=== PATIENT | male | born 2000 | race Hispanic/Latino ===

== ENCOUNTER 2023-01-28 07:53 | Emergency (ER) | payer BC ==
[~2023-01-28] VITALS: Ht 160 cm; Wt 72.6 kg
[2023-01-28] MEDS ORDERED: ONDANSETRON 4MG INJ IVP ONE (08:30)
[2023-01-28] MEDS ORDERED: LORAZEPAM 2 MG/ML 1 ML VIAL IVP ONE (08:30)
[2023-01-28] MEDS ORDERED: LEVETIRACETAM 500 MG/5 ML SD VIAL IV SCH (08:30)
[2023-01-28 08:57] LABS: BASOPHILS % (AUTO) 1.1 % (0.0-5.0); EOSINOPHILS % (AUTO) 11.8 % (0.0-8.0); HEMATOCRIT 43.9 % (42-54); LYMPHOCYTES % (AUTO) 35.2 % (21.0-51.0); MEAN CORPUSCULAR HEMOGLOBIN 28.5 pg (27.0-33.0); MEAN CORPUSCULAR HGB CONC 32.8 g/dL (32.0-36.0); MEAN CORPUSCULAR VOLUME 86.9 fL (79-99); MONOCYTES % (AUTO) 5.8 % (3.0-13.0); NEUTROPHILS % (AUTO) 44.3 % (40.0-77.0); PLATELET COUNT (AUTO) 284 K/uL (130-400); RED BLOOD CELL COUNT(AUTO) 5.05 MIL/uL (4.50-6.20); RED CELL DISTRIBUTION WIDTH 12.3 % (11.0-15.5)
[2023-01-28 09:33] LABS: POTASSIUM 3.7 mmol/L (3.5-5.1); TOTAL PROTEIN, SERUM 7.1 g/dL (6.0-8.3)
[2023-01-28] MEDS ORDERED: LEVE-43 PO (10:21)
[2023-01-28 10:24] VITALS: BP 105/62
== END 2023-01-28 10:21 | disposition home or self-care (01) ==
LOC: EDH 07:53
DX: G40.909 Epilepsy, unspecified, not intractable, without status epilepticus (principal); E86.0 Dehydration; F19.10 Other psychoactive substance abuse, uncomplicated; Z91.148 Patient's other noncompliance with medication regimen for other reason
CPT/HCPCS: 99284; 96365; 96375; 82550; 80053; 85025; 83605; 36415; J1953; J2405; J2060

== ENCOUNTER 2024-07-09 12:48 | Inpatient (IN) | payer BC ==
[~2024-07-09] VITALS: Ht 167.6 cm; Wt 89.4 kg
[~2024-07-09 12:48] MED LIST: LEVE-43 PO
--- NOTE | 2024-07-09 12:55 | NUR ---
PT JUST NOW PLACED IN MY ED BED 10
--- NOTE | 2024-07-09 12:56 | NUR ---
PER EMS, PT IS NON COMPLIANT W/MEDICATIONS. CERVICAL COLLAR PLACED
--- NOTE | 2024-07-09 13:00 | NUR ---
SEIZURE PRECAUTIONS: SEIZURE PADS PLACED ON SIDE RAILS
[2024-07-09] MEDS: LACTATED RINGERS 1000ML 1,000 ML IV ONE (13:39)
--- NOTE | 2024-07-09 13:40 | NUR ---
PT TO CT SCAN VIA STRETCHER
[2024-07-09 13:42] LABS: AMPHET/METH SCREEN,URINE NEGATIVE (NEGATIVE); BARBITURATE SCREEN, URINE NEGATIVE (NEGATIVE); BENZODIAZEPINES SCREEN,URINE NEGATIVE (NEGATIVE); CANNABINOID SCREEN,URINE POSITIVE (NEGATIVE); COCAINE SCREEN,URINE NEGATIVE (NEGATIVE); OPIATE SCREEN,URINE NEGATIVE (NEGATIVE); PHENCYCLIDINE SCREEN,URINE NEGATIVE (NEGATIVE)
[2024-07-09 13:52] LABS: BASOPHILS # (AUTO) 0.12 K/uL (0.00-0.20); BASOPHILS % (AUTO) 0.5 % (0.0-5.0); HEMATOCRIT 48.6 % (42-54); IMMATURE GRANULOCYTE ABSOLUTE 0.89 K/uL (0-1); LYMPHOCYTES % (AUTO) 3.9 % (21.0-51.0); MEAN CORPUSCULAR HEMOGLOBIN 28.9 pg (27.0-33.0); MEAN CORPUSCULAR HGB CONC 34.4 g/dL (32.0-36.0); MEAN CORPUSCULAR VOLUME 84.1 fL (79-99); MONOCYTES # (AUTO) 2.1 K/uL (0.1-1.0); MONOCYTES % (AUTO) 7.9 % (3.0-13.0); NEUTROPHILS # (AUTO) 22.4 K/uL (1.8-7.7); NEUTROPHILS % (AUTO) 84.3 % (40.0-77.0); PLATELET COUNT (AUTO) 322 K/uL (130-400); RED BLOOD CELL COUNT(AUTO) 5.78 MIL/uL (4.50-6.20); RED CELL DISTRIBUTION WIDTH 11.6 % (11.0-15.5); WHITE BLOOD COUNT (AUTO) 26.5 K/uL (4.8-10.8)
[2024-07-09 14:12] LABS: CARBON DIOXIDE 22 mmol/L (21-32); CHLORIDE 107 mmol/L (101-111); CREATININE 1.6 mg/dL (0.5-1.3); GLOMERULAR FILTR. RATE CALC 61 mL/min (>90); GLUCOSE,RANDOM 118 mg/dL (70-105); POTASSIUM 3.5 mmol/L (3.5-5.1); SODIUM SERUM 142 mmol/L (136-145); UREA NITROGEN, BLOOD 19 mg/dL (7-18)
--- NOTE | 2024-07-09 14:17 | HMCIMG ---
CERV SPINE 2-3VWS: 07/09/2024 1:02 PM [employer] CLINICAL HISTORY: fall COMPARISON: None TECHNIQUE: 4 images of the cervical spine were obtained. FINDINGS: The lung apices are clear. There is no fracture or destructive lesion. The vertebral bodies and posterior elements are unremarkable. The alignment, discs, and discovertebral relationships are normal. There is no evidence of instability on these views. IMPRESSION: Normal cervical spine.
--- NOTE | 2024-07-09 14:22 | HMCIMG ---
CT HEAD/BRAIN W/O CONTRAST CLINICAL HISTORY: seizure/ fall COMPARISON: None TECHNIQUE: Multiple sequential axial images of the head were obtained from the base of the skull through vertex. CT was performed with one or more of the following dose reduction techniques: automated exposure control, adjustment of the mA and/or kV according to patient size, or use of iterative reconstruction technique FINDINGS: The brain parenchyma and CSF spaces are unremarkable. The orbital contents, paranasal sinuses and mastoid air cells are within normal limits. The calvarium is intact. IMPRESSION: Normal study
--- NOTE | 2024-07-09 14:26 | ERN ---
General Chief Complaint: Mechanical Fall Stated Complaint: SEIZURES Time Seen by MD: 12:49 Source: patient History of Present Illness Initial Comments 23-year-old male coming in to be evaluated for fall. Patient states that he fell down and he believes it was associated to his seizures. Per patient he has not been taking his seizure medications. Allergies: Coded Allergies: No Known Drug Allergies (Unverified Allergy, Unknown, UNKNOWN, 06/14/20) Home Meds Active Scripts Levetiracetam (Keppra) 500 Mg Tablet, 500 MG PO BID for 30 Days, #60 TAB 2 Refills Prov:RUBY LINDQUIST Sr., MD 01/28/23 Past Medical History Past Medical History: Seizure Past Surgical History: None Social History Social History: Drugs, ETOH, Lives with family ROS Dictation CONSTITUTIONAL: No chills, no fever, weakness, no diaphoresis, no malaise. HEAD/FACE: No signs of trauma. EENT: No eye pain, no blurred vision, no tearing, no double vision, no ear pain, no ear discharge, no nose pain, no nasal congestion, no throat pain, no throat swelling, no mouth pain. RESPIRATORY: No cough, no orthopnea, no SOB, no stridor, no wheezing. CARDIOVASCULAR: No chest pain, no edema, no palpitations, no syncope. GASTROINTESTINAL/ABDOMINAL: No abdominal pain, no constipation, no diarrhea, no nausea, no vomiting. GENITOURINARY: No abnormal discharge, no dysuria, no frequent urination, no hematuria. No complaints of pain in the genitals. MUSCULOSKELETAL: No back pain, no gout, no joint pain, no joint swelling, no muscle pain, no muscle stiffness, no neck pain. INTEGUMENTARY: No change in color, no change in hair/nails, no dryness, no lesion, no lumps, no rash. NEUROLOGICAL/PSYCH: No anxiety, not depressed, no emotional problem, no headache, no numbness, no pre-existing deficit, no history of seizures, no tremors, no weakness. HEMATOLOGIC/LYMPHATIC: Not anemic, no history of blood clots, no apparent bleeding, no bruising, glands not swollen. All Systems Negative, Except as Noted. Physical Exam Physical Exam Dictation VITAL SIGNS: Reviewed. GENERAL APPEARANCE: Alert, oriented x3, no acute distress, obese. HEAD AND FACE: Non-traumatic. EYES: PERRL, pink conjunctivas, eyelid no trauma, anterior chamber clear. EARS: Pinnas intact and no signs of trauma or erythema. Ear canals clear and no discharge. TMs no erythema. NOSE: No discharge, no bleeding. OROPHARYNX: Mouth normal, teeth no caries, tongue pink. Pharynx clear, no erythema. Tonsils no exudates, no abscesses noted. Mucous membrane moist. NECK: Supple, non-tender, no thyromegaly, no masses, no JVD, no bruits. BREAST: Deferred. CHEST: No tenderness, no crepitus, no paradoxical movement, no retractions. LUNGS: Clear, well-ventilated, symmetric, no rales, no wheezing, no rhonchi, no stridor, good breath sounds bilaterally. HEART: Regular rate, regular rhythm, no murmur, no gallops. VASCULAR: No peripheral edema. ABDOMEN: Soft, positive bowel sounds, nondistended, no guarding, nontender, no rebound, no masses no hepatomegaly, no splenomegaly, no Song's sign, no hernias. RECTAL: Deferred. GENITAL: Deferred. NEUROLOGICAL: Normal speech, gross motor function intact, gross sensory function intact. MUSCULOSKELETAL: Neck nontender, full range of motion, back nontender, full range of motion. EXTREMITIES: Nontender, full range of motion. SKIN: Color pink, dry, no turgor, no rash, no lacerations, no abrasions, no contusions. LYMPHATICS: Deferred. Results Laboratory and Microbiology Lab and Micro Result Laboratory Tests Test 07/09/24 13:15 07/09/24 13:40 07/09/24 14:50 Urine Opiates Screen NEGATIVE (NEGATIVE) Urine Barbiturates Screen NEGATIVE (NEGATIVE) Urine Phencyclidine Screen NEGATIVE (NEGATIVE) Urine Amphetamines Screen NEGATIVE (NEGATIVE) Urine Benzodiazepines Screen NEGATIVE (NEGATIVE) Urine Cocaine Screen NEGATIVE (NEGATIVE) Urine Marijuana (THC) Screen POSITIVE (NEGATIVE) H White Blood Count 26.5 K/uL (4.8-10.8) H Red Blood Count 5.78 MIL/uL (4.50-6.20) Hemoglobin 16.7 g/dL (14.0-18.0) Hematocrit 48.6 % (42-54) Mean Corpuscular Volume 84.1 fL (79-99) Mean Corpuscular Hemoglobin 28.9 pg (27.0-33.0) Mean Corpuscular Hemoglobin Concent 34.4 g/dL (32.0-36.0) Red Cell Distribution Width 11.6 % (11.0-15.5) Platelet Count 322 K/uL (130-400) Mean Platelet Volume 9.8 fL (7.5-10.5) Immature Granulocyte % (Auto) 3.4 % (0-1) H Neutrophils (%) (Auto) 84.3 % (40.0-77.0) H Lymphocytes (%) (Auto) 3.9 % (21.0-51.0) L Monocytes (%) (Auto) 7.9 % (3.0-13.0) Eosinophils (%) (Auto) 0.0 % (0.0-8.0) Basophils (%) (Auto) 0.5 % (0.0-5.0) Neutrophils # (Auto) 22.4 K/uL (1.8-7.7) H Lymphocytes # (Auto) 1.0 K/uL (1.0-4.8) Monocytes # (Auto) 2.1 K/uL (0.1-1.0) H Eosinophils # (Auto) 0.00 K/uL (0.00-0.70) Basophils # (Auto) 0.12 K/uL (0.00-0.20) Absolute Immature Granulocyte (auto 0.89 K/uL (0-1) Segmented Neutrophils % 80 % (40-70) H Band Neutrophils % 13 % (0-2) H Lymphocytes % (Manual) 3 % (22-44) L Monocytes % (Manual) 4 % (2-9) Nucleated Red Blood Cells 0.0 % (0.0-0.19) Differential Comment MANUAL DIFFERENTIAL White Cell Morphology Comment CONSISTENT W/DIFF Platelet Morphology Comment ADEQUATE Red Blood Cell Morphology ANISO 1+ Sodium Level 142 mmol/L (136-145) Potassium Level 3.5 mmol/L (3.5-5.1) Chloride Level 107 mmol/L (101-111) Carbon Dioxide Level 22 mmol/L (21-32) Blood Urea Nitrogen 19 mg/dL (7-18) H Creatinine 1.6 mg/dL (0.5-1.3) H Glomerular Filtration Rate Calc 61 mL/min (>90) Random Glucose 118 mg/dL (70-105) H Total Calcium 8.6 mg/dL (8.5-10.1) Phenytoin (Dilantin) Level < 0.5 mcg/mL (10.0-20.0) L Valproic Acid (Depakene) Level 4 mcg/mL (50-100) L Lactic Acid Level 4.7 mmol/L (0.8-2.5) H Total Creatine Kinase 582 U/L (21-232) #*H Troponin I High Sensitivity 47 ng/L (4-75) Labs Reviewed?: Yes MDM MDM: Differential diagnosis: History of seizure, syncope, dehydration, lactic acidosis, cannabis abuse, Rationale: Tests considered and ordered secondary to shared decision making include: labs, ECG and radiology Previous outside records reviewed: Old ER visits. Risk of complication and/or morbidity or mortality of patient management: None Medications-Per medication reconciliation Need for hospitalization: Patient does meet criteria for hospitalization. Need for emergency major/minor surgery: No There are no social concerns with this patient. Prescription drug management Prescriptions will include symptomatic care Patient's prior external medical records from other ER visits were reviewed by me as indicated. Prior testing and results from previous visits were reviewed. Prior tests were taken into account with medical decision making and resource utilization, independent historian/historians were used to obtain complete medical history. I independently interpreted the test that were performed, results were reviewed by me and considered findings on radiology if ordered. Medical management and examination interpretation discussions were had by me with other qualified healthcare professionals as indicated for the patient's care. Patient is a 23-year-old male coming in to be evaluated they had a syncopal episode. Patient states he does have a history of seizures has not taking his Keppra as indicated due to financial reasons. Laboratory workup positive for elevated lactic acid dehydration was also found white blood cell count elevated as well. Laboratory workup also positive for cannabis. Patient will be admitted under the care of hospitalist group for ongoing management of syncopal episode with lactic acidosis and elevated white blood cell count. Throughout ER visit patient has been stable. ED Course Orders Procedure Category Date Status Time Cbc With Differential LAB 07/09/24 Complete 13:02 Phenytoin (Yann) In LAB 07/09/24 Complete House 13:02 Valproic Acid LAB 07/09/24 Complete 13:02 Ct Head/Brain W/O CT 07/09/24 Resulted Contrast 13:02 Lactated Ringers PHA 07/09/24 In Process 1000ml (Lactated 13:30 Basic Metabolic Panel LAB 07/09/24 Complete 13:02 Cerv Spine 2-3vws RAD 07/09/24 Resulted 13:02 Drug Screen Urine LAB 07/09/24 Complete 13:02 Levetiracetam 500 PHA 07/09/24 In Process Mg/5 Ml Sd V (Keppra 5 14:30 Blood Cult STARR 07/09/24 In Process 14:36 Urinalysis Profile LAB 07/09/24 Logged 14:36 Culture Urine STARR 07/09/24 Logged 14:36 0.9%Nacl 1000ml (Ns PHA 07/09/24 In Process 1000ml) 15:00 Creatine Kinase, Total LAB 07/09/24 Complete 14:36 Troponin I High LAB 07/09/24 Complete Sensitivity 14:36 Lactic Acid LAB 07/09/24 Complete 14:36 Ceftriaxone 1g Vial PHA 07/09/24 Complete (Rocephine 1g Inj) 15:00 Manual Differential LAB 07/09/24 Complete 13:40 Current Medications Medications (Trade) Dose Ordered Sig/Barber Route PRN Reason Start Time Stop Time Status Last Admin Dose Admin Ceftriaxone Sodium (ROCEphine 1G INJ) 1 gm ONCE ONCE IVPB 07/09/24 15:00 07/09/24 15:01 DC 07/09/24 15:29 Lactated Ringer's 1,000 ml @ 125 mls/hr ONCE ONCE IV 07/09/24 13:30 07/09/24 21:29 07/09/24 13:39 Levetiracetam (kepPRA 500 MG/5 ML SD VIAL) 1,000 mg ONCE IV 07/09/24 14:30 08/08/24 14:29 07/09/24 14:52 Sodium Chloride 2,178 ml @ 726 mls/hr ONCE ONCE IV 07/09/24 15:00 07/09/24 17:59 07/09/24 14:52 Vital Signs Date Time Temp Pulse Resp B/P (MAP) Pulse Ox O2 Delivery O2 Flow Rate FiO2 07/09/24 12:50 98.8 112 20 132/89 98 Room Air 0 Critical Care Note Comments Critical Care Procedure Note Authorized and Performed by: Total critical care time: Approximately 36 minutes Due to a high probability of clinically significant, life threatening deterioration, the patient required my highest level of preparedness to intervene emergently and I personally spent this critical care time directly and personally managing the patient. This critical care time included obtaining a history; examining the patient; pulse oximetry; ordering and review of studies; arranging urgent treatment with development of a management plan; evaluation of patient's response to treatment; frequent reassessment; and, discussions with other providers. This critical care time was performed to assess and manage the high probability of imminent, life-threatening deterioration that could result in multi-organ failure. It was exclusive of separately billable procedures and treating other patients and teaching time. Please see MDM section and the rest of the note for further information on patient assessment and treatment. DX & DISP Disposition: Inpatient Decision to Admit Time: 16:10 Departure Impression: Primary Impression: Recreational drug use Additional Impressions: Noncompliance with medications, Lactic acidosis, Dehydration Condition: Stable Referrals: SELF,REFERRAL (PCP) [facility] MD Jul 09, 2024 14:26
[2024-07-09 14:27] LABS: PHENYTOIN (DILANTIN) < 0.5 mcg/mL (10.0-20.0)
[2024-07-09 14:34] LABS: VALPROIC ACID 4 mcg/mL (50-100)
[2024-07-09 14:48] LABS: BAND NEUTROPHILS % (MANUAL) 13 % (0-2); LYMPHOCYTES % (MANUAL) 3 % (22-44); MAN.DIFF COMMENT-IMPRESSION MANUAL DIFFERENTIAL; MONOCYTES % (MANUAL) 4 % (2-9); SEGMENTED NEUTROPHILS % 80 % (40-70); TOTAL CELLS COUNTED 100
[2024-07-09 14:49] LABS: PLATELET MORPHOLOGY COMMENT ADEQUATE; WBC MORPHOLOGY CONSISTENT W/DIFF
[2024-07-09] MEDS: 0.9%NACL 1000ML 2,178 ML IV ONE (14:52)
[2024-07-09] MEDS: leveTIRACEtam 500 MG/5 ML SD VIAL IV SCH (14:52)
[2024-07-09] MEDS: cefTRIAXone 1G VIAL IVPB ONE (15:29)
[2024-07-09] MEDS ORDERED: PoTASSium chl 10% ELIXIR 20MEQ 20 MEQ/15 ML UDCUP PO PRN (16:30)
[2024-07-09] MEDS: CEFTRIAXONE 2GM VIAL IVPB SCH (16:30)
[2024-07-09] MEDS ORDERED: acetaMINOPHEN 325 MG TAB PO PRN (16:30)
[2024-07-09] MEDS ORDERED: PoTASSium chloRIDE 20MEQ/100ML 100 ML IV PRN (16:30)
[2024-07-09] MEDS: ondanSETRON 4MG INJ IVP PRN (16:31)
[2024-07-09 16:43] LABS: APPEARANCE,URINE CLEAR (CLEAR); BILIRUBIN,URINE NEGATIVE (NEGATIVE); GLUCOSE, URINE (UA) >=1000 mg/dL (NEGATIVE); KETONES,URINE 10 mg/dL (NEGATIVE); LEUKOCYTE ESTERASE ,URINE NEGATIVE Leu/uL (NEGATIVE); NITRATE,URINE NEGATIVE (NEGATIVE); OCCULT BLOOD,URINE MODERATE (NEGATIVE); UROBILINOGEN,URINE 0.2 mg/dL (0.2-1.0)
[2024-07-09 16:44] LABS: ADD UA MICROSCOPIC YES
[2024-07-09 16:45] LABS: COLOR,URINE LIGHT-YELLOW (YELLOW); PROTEIN,URINE 30 mg/dL (NEGATIVE)
[2024-07-09 16:46] LABS: BACTERIA,URINE RARE /HPF (None Seen); SQUAMOUS EPITHELIAL CELL,UR RARE /HPF (0-2); URIC ACID CRYSTALS,URINE RARE /LPF (None Seen); WBC,URINE 0-1 /HPF (0-1)
[2024-07-09] MEDS ORDERED: PHARMACY COMMUNICATION MISC PRN (17:00)
--- NOTE | 2024-07-09 17:06 | HP ---
[facility] HISTORY AND PHYSICAL Date of Service: Jul 09, 2024 Time of Service: 16:21 HISTORY OF PRESENT ILLNESS: [ ] PCP: none admission date: 07/09/24 This is a 23-year-old female that presents in ED with chief complaints of having a mechanical fall she assumed maybe she had a seizure and came to ED for further evaluation and treatment. Apparently patient is on ant seizure medication ho wever noncompliance has not be taking her medication over a year. His last siezure was a year ago. Patient's smokes marijuana last marijuana use was two days ago patient had alcohol consumption last night had seven beers. He reports he drinks on a daily basis. Patient received loading dose of Keppra and IV fluids. Patient was seen in ED 10 patient was sleeping however was easily aroused answer all my questions appropriately. Denied chest pain or shortness for breath. Discussed the plan of care answer all questions. REVIEW OF SYSTEMS CONSTITUTIONAL: Denies fevers, chills, or night sweats. No unintentional weight loss reported. NEUROLOGICAL: Denies headache, amaurosis fugax, motor weakness, sensory deficit, vertigo/spinning sensation, gait abnormalities, or tremors. ENT: No hearing loss, otalgia, otorrhea, rhinitis, rhinorrhea, hoarseness, or sore throat. CARDIOVASCULAR: Denies any exertional angina, dyspnea on exertion, orthopnea, paroxysmal nocturnal dyspnea, palpitations, life-threatening arrhythmias, reggie ication. PULMONARY: Denies any shortness of breath, cough, phlegm/sputum, hemoptysis, pleuritic chest pain. SLEEP: Denies morning headaches, daytime somnolence or napping. Denies difficulty falling asleep, staying asleep, waking from sleep. Denies knowledge of snoring. GASTROINTESTINAL: Denies any type of dysphagia to either liquids or solids. Denies nausea, vomiting, pyrosis, early satiety, abdominal pain, diarrhea, constipation, or changes in stool consistency or caliber. Denies coffee-ground emesis, hematemesis, hematochezia, or melanotic stools. GENITOURINARY: Denies frequency, urgency, nocturia, hematuria or incontinence (Storage/Irritative symptoms.) Low urinary stream, straining to void, urinary intermittency or hesitancy, splitting of the voiding stream, terminal dribbling. ENDOCRINOLOGIC: Denies polyuria, polydipsia, polyphagia or heat/cold intolerances. HEMATOLOGIC: Denies thrombophilia/previous clots, or coagulopathy/bleeding disorders. ONCOLOGIC: Denies personal history of malignancy. DERMATOLOGIC: Denies rashes or pruritus. PSYCHIATRIC: Denies any suicidal or homicidal ideation. Denies hallucinations. PAST MEDICAL HISTORY: [ ] PAST SURGICAL HISTORY: [ ] PAST SOCIAL HISTORY: [ ] FAMILY HISTORY: [ ] Coded Allergies: No Known Drug Allergies (Unverified Allergy, Unknown, UNKNOWN, 06/14/20) PHYSICAL EXAM GENERAL APPEARANCE: The patient is awake, alert, and oriented, in no acute cardiopulmonary distress. NEUROLOGICAL: Cranial nerves II-XII grossly intact. Motor is 5/5 in bilateral upper and lower extremities proximal to distal. No sensory deficits. HEENT: Face is symmetric. Pupils are equal and reactive. Extraocular movements are intact. NECK: Supple. No JVD. No thyromegaly. No submental, submandibular, pre- /postauricular, occipital or supraclavicular lymphadenopathy. CHEST: Normal chest expansion. No Telemetry. LUNGS: Absence of any rales, rhonchi or any wheezing. CARDIOVASCULAR: Regular. S1 and S2 normal. No appreciable rubs, murmurs or gallops. ABDOMEN: Soft, nontender, and nondistended. There is no rebound, voluntary guarding, or rigidity. : Deferred. No Roy. EXTREMITIES: Non-edematous and not cyanotic. No clubbing. Good capillary refill. SKIN: No skin breakdown. Vital Sign (Last 24 Hours) 07/09/24 12:50 Temp 98.8 Pulse 112 Resp 20 B/P (MAP) 132/89 Pulse Ox 98 O2 Delivery Room Air O2 Flow Rate 0 LABS: Laboratory: Test 07/09/24 14:50 07/09/24 13:40 07/09/24 13:15 Range/Units Lactic Acid Level 4.7 H 0.8-2.5 mmol/L Total Creatine Kinase 582 #*H 21-232 U/L Troponin I High Sensitivity 47 4-75 ng/L White Blood Count 26.5 H 4.8-10.8 K/uL Red Blood Count 5.78 4.50-6.20 MIL/uL Hemoglobin 16.7 14.0-18.0 g/dL Hematocrit 48.6 42-54 % Mean Corpuscular Volume 84.1 79-99 fL Mean Corpuscular Hemoglobin 28.9 27.0-33.0 pg Mean Corpuscular Hemoglobin Concent 34.4 32.0-36.0 g/dL Red Cell Distribution Width 11.6 11.0-15.5 % Platelet Count 322 130-400 K/uL Mean Platelet Volume 9.8 7.5-10.5 fL Immature Granulocyte % (Auto) 3.4 H 0-1 % Neutrophils (%) (Auto) 84.3 H 40.0-77.0 % Lymphocytes (%) (Auto) 3.9 L 21.0-51.0 % Monocytes (%) (Auto) 7.9 3.0-13.0 % Eosinophils (%) (Auto) 0.0 0.0-8.0 % Basophils (%) (Auto) 0.5 0.0-5.0 % Neutrophils # (Auto) 22.4 H 1.8-7.7 K/uL Lymphocytes # (Auto) 1.0 1.0-4.8 K/uL Monocytes # (Auto) 2.1 H 0.1-1.0 K/uL Eosinophils # (Auto) 0.00 0.00-0.70 K/uL Basophils # (Auto) 0.12 0.00-0.20 K/uL Absolute Immature Granulocyte (auto 0.89 0-1 K/uL Segmented Neutrophils % 80 H 40-70 % Band Neutrophils % 13 H 0-2 % Lymphocytes % (Manual) 3 L 22-44 % Monocytes % (Manual) 4 2-9 % Nucleated Red Blood Cells 0.0 0.0-0.19 % Differential Comment MANUAL DIFFERENTIAL White Cell Morphology Comment CONSISTENT W/DIFF Platelet Morphology Comment ADEQUATE Red Blood Cell Morphology ANISO 1+ Sodium Level 142 136-145 mmol/L Potassium Level 3.5 3.5-5.1 mmol/L Chloride Level 107 101-111 mmol/L Carbon Dioxide Level 22 21-32 mmol/L Blood Urea Nitrogen 19 H 7-18 mg/dL Creatinine 1.6 H 0.5-1.3 mg/dL Glomerular Filtration Rate Calc 61 >90 mL/min Random Glucose 118 H 70-105 mg/dL Total Calcium 8.6 8.5-10.1 mg/dL Phenytoin (Dilantin) Level < 0.5 L 10.0-20.0 mcg/mL Valproic Acid (Depakene) Level 4 L 50-100 mcg/mL Urine Opiates Screen NEGATIVE NEGATIVE Urine Barbiturates Screen NEGATIVE NEGATIVE Urine Phencyclidine Screen NEGATIVE NEGATIVE Urine Amphetamines Screen NEGATIVE NEGATIVE Urine Benzodiazepines Screen NEGATIVE NEGATIVE Urine Cocaine Screen NEGATIVE NEGATIVE Urine Marijuana (THC) Screen POSITIVE H NEGATIVE Current Medications Medications (Trade) Dose Ordered Sig/Barber Route PRN Reason Start Time Stop Time Status Last Admin Dose Admin Levetiracetam (kepPRA 500 MG/5 ML SD VIAL) 1,000 mg ONCE IV 07/09/24 14:30 08/08/24 14:29 07/09/24 14:52 1,000 MG DIAGNOSTICS / RADIOLOGY: [ ] ASSESSMENT: Sirs with dysfunction POA syncope versus seizure episode with mechanical fall POA possible Seizure episode secondary to hydration,and induced marijuana PERRY prerenal dehydration POA mild rhabdomyolysis POA positive Marijuana abuse POA ETOH dependency PLAN: admit: surgical medical floor etl consultant: [place] [facility] will follow recommendations. Received loading dose of Keppra we will continue [address] head was negative IVF's: NS at 100 ml/hr Rocephin 2 gm IV daily, urine culture labs in am: cbc,cmp, mag. avoid NSAIDs, strict I.O CIWA PROTOCOL thiamine HCL 100 mg IV now then daily MVI now then daily PRN: MEDICATIONS Tylenol 650 mg po every 4 hrs for fever Zofran 4 mg IV every 6 hrs for n/v Hydralazine 10 mg IV every 4 hrs systolic pressure > 160 Supportive measures: DVT ppx, GI ppx all questions answered time spent: > 35 min Supervising MD: Dr. Brown c/d ATTESTATION BY PHYSICIAN I have seen and examined the patient. I reviewed the documentation, medical decision making, and treatment plan as noted by the mid-level provider above. I agree with the findings and plan of care. TINA BROWN MD, ELIZABETH NP Jul 09, 2024 17:06
[2024-07-09 17:13] LABS: BASOPHILS # (AUTO) 0.06 K/uL (0.00-0.20); BASOPHILS % (AUTO) 0.3 % (0.0-5.0); HEMATOCRIT 43.2 % (42-54); IMMATURE GRANULOCYTE ABSOLUTE 0.35 K/uL (0-1); LYMPHOCYTES # (AUTO) 0.5 K/uL (1.0-4.8); LYMPHOCYTES % (AUTO) 2.3 % (21.0-51.0); MEAN CORPUSCULAR HEMOGLOBIN 29.3 pg (27.0-33.0); MEAN CORPUSCULAR HGB CONC 34.7 g/dL (32.0-36.0); MEAN CORPUSCULAR VOLUME 84.4 fL (79-99); MONOCYTES # (AUTO) 1.3 K/uL (0.1-1.0); MONOCYTES % (AUTO) 6.1 % (3.0-13.0); NEUTROPHILS # (AUTO) 19.5 K/uL (1.8-7.7); NEUTROPHILS % (AUTO) 89.7 % (40.0-77.0); PLATELET COUNT (AUTO) 277 K/uL (130-400); RED BLOOD CELL COUNT(AUTO) 5.12 MIL/uL (4.50-6.20); RED CELL DISTRIBUTION WIDTH 11.6 % (11.0-15.5); WHITE BLOOD COUNT (AUTO) 21.8 K/uL (4.8-10.8)
[2024-07-09 17:22] LABS: CREATININE 1.7 mg/dL (0.5-1.3); POTASSIUM 4.5 mmol/L (3.5-5.1)
[2024-07-09 17:27] LABS: ALBUMIN 3.3 g/dL (3.5-5.0); BILIRUBIN,TOTAL 0.7 mg/dL (0.2-1.0); MAGNESIUM 2.8 mg/dL (1.80-2.40); TOTAL PROTEIN, SERUM 5.8 g/dL (6.0-8.3)
[2024-07-09] MEDS ORDERED: COMPOUND IV MISC 1 EACH IVSOLN MISC PRN (17:30)
--- NOTE | 2024-07-09 17:30 | NUR ---
PT REFUSING VITAL SIGNS TO BE TAKEN
[2024-07-09] MEDS: THIAMINE HCL 100 MG, FOLic ACID 5 MG/ML VIAL 1 MG, M.V.I. IV [ADULT] 10 ML in 0.9%NACL ... IV SCH (18:25)
[2024-07-09] MEDS: 0.9%NACL 1000ML 1,000 ML IV SCH (18:25)
--- NOTE | 2024-07-09 19:11 | NUR ---
REPORT ENDORSED TO ALEXA TALAVERA
--- NOTE | 2024-07-09 19:16 | NUR ---
TOOK OVER PATIENT AT THIS TIME
[2024-07-09 20:15] VITALS: BP 154/80; PULSE 107; RESP 24; TEMP 98.1; O2SAT 98
[2024-07-09] MEDS: leveTIRACEtam 500 MG TABLET PO SCH (21:23)
[2024-07-09] MEDS: chlordiazePOXIDE HCL 25 MG CAP PO PRN (21:24)
--- NOTE | 2024-07-09 21:24 | NUR ---
Nurse note Patient noted sitting up abruptly on side of bed. Emesis episode x1 noted. Emesis bag provided at this time with 1 cup of ice chips. Advised patient to eat ice to settle down stomach. Patient continued dry heaving, agitated and looking around room. Patient able to confirm place, date and time. As per protocol Librium 25mg capsule given by mouth at this time. Patient noted calm and collected at this time. Will continue to monitor.
--- NOTE | 2024-07-09 21:25 | NUR ---
Tele Neuro Tele Neuro request done at this time with Soumya Middleton MD.
--- NOTE | 2024-07-09 21:40 | NUR ---
Nurse note Teleneuro consult done at this time. Per Dr. Middleton recommendations seizures may be caused by alcohol withdrawals, continue with ciwa protocol.
--- NOTE | 2024-07-09 21:49 | CONS ---
CONSULT NOTE: [facility] Note # Demographics Consult Type: General Neurology Patient Location: Emergency Room First Name: Eleno Last Name: Dale Date of : 02/08/1956 Age: 68 Gender: Male Facility: [facility] Time of Initial Page (): 07/09/2024, 20:04 Time of Return Call (): 07/09/2024, 20:04 # HPI Chief Complaint: - numbness History: 68yom who p/w 3 days of LUE numbness. On exam, he has L sided neglect. CTH with R parietal infarct. # Scores Time of exam and NIHSS (): 07/09/2024, 20:06 Level of Consciousness 1a: [0] = Alert; keenly responsive LOC Questions 1b: [0] = Answers both questions correctly LOC Commands 1c: [0] = Performs both tasks correctly Best Gaze 2: [0] = Normal Visual 3: [0] = No visual loss Facial Palsy 4: [0] = Normal symmetrical movements Motor Arm Left 5a: [0] = No drift Motor Arm Right 5b: [0] = No drift Motor Leg Left 6a: [0] = No drift Motor Leg Right 6b: [0] = No drift Limb Ataxia 7: [0] = Absent Sensory 8: [1] = [id number] sensory loss Best Language 9: [0] = No aphasia Dysarthria 10: [0] = Normal Extinction and Inattention 11: [2] = Profound radha-inattention or extinction to more than one modality NIHSS Total: 3 # Data Time Head CT personally read by me (): 07/09/2024, 20:[address]: - per radiologist read R parietal infarct # Assessment Impression: - Ischemic Stroke (Acute) # Plan Thrombolytic/Intervention: NOT IV Thrombolysis or IA Intervention candidate Thrombolytic Exclusion: > 4.5 hours Intraarterial Exclusion: - clinical exam not consistent with presence of large vessel occlusion (LVO), can reconsider if LVO found on vascular imaging Blood Pressure Management: Use labetolol 10-20mg IV PRN or nicardipine gtt to maintain BP parameters Imaging: (urgency: routine): - MRI Brain without contrast Needs vessel imaging, either CTA or MRA head and neck Diagnostic Test: - echo with bubble study Telemetry for a fib monitoring Therapy/Evaluation: - PT/OT evaluation - speech/swallow consultation - NPO until swallow evaluation Medication: - aspirin 81 mg PLUS clopidogrel (Plavix) 75 mg for 21 days, then monotherapy therafter atorvastatin 80mg daily, goal LDL <70 Other: - If patient has any neurological deterioration please call me back immediately Additional Recommendations: - Avoid dehydration and relative hypotension - Risk factor modification, including smoking cessation and alcohol moderation if appropriate - Monitor glucose and correct as needed - If cryptogenic non-lacunar stroke on MRI, obtain outpatient cardiac monitoring for a fib - Call back for neurological deterioration Disposition: admit # Logistics Attestation of consult completion: The patient is located at: [facility]. Facility staff participated in the visit. I performed this telemedicine visit from my offsite office utilizing interactive 2 way audio and visual telecommunication technology. Total time spent in telemedicine encounter: I spent 27 minutes reviewing clinical data and/or imaging, obtaining history, examining the patient, communicating with the onsite care team, and in preparation of this report. # Demographics First Name: Eleon Last Name: Dale Facility: [facility] EMETERIO KO MD Jul 09, 2024 21:49
--- NOTE | 2024-07-09 22:35 | NUR ---
Nurse note [employer] hospitalist armed custom protection officer Mirian SOL contacted at this time to advise her of patient's lactic acid 2.8. Patient was given 1 liter of lactated ringers solution and around 2100 mL of NS. Mirian SOL verbalized understanding. No new orders given.
[2024-07-09] MEDS: LORazepam 2 MG/ML 1 ML VIAL IVP PRN (22:49)
--- NOTE | 2024-07-09 22:49 | NUR ---
Nurse note Patient with multiple emesis episodes. Patient started with vomiting off the left side rail while in bed. Patient agitated in bed and restless. Ativan 2mg IV administered at this time. HOB elevated to above 30 degrees to prevent aspiration. Patient noted settling down in bed. No further nausea or vomiting noted after administration. Will continue to monitor.
[2024-07-10] VITALS (8 sets, daily range): BP systolic 125–155; BP diastolic 69–95; PULSE 92–109; RESP 18–24; TEMP 97.5–98.9; O2SAT 95–98
--- NOTE | 2024-07-10 00:10 | NUR ---
PER DR STEVENS, CANCEL EEG Addendum: 07/10/24 at 1512 by BRENDA DASILVA Amended: Links added.
--- NOTE | 2024-07-10 02:58 | NUR ---
Nurse note Bed alarm activated at this time. Patient noted sitting on the side of the bed. Patient complaint of nausea at this time. Emesis bag provided and 100cc of yellow, clear liquid noted in bag. Patient voiced he would like to take a shower. Damien CALENDER FEEDER assisted patient in shower. After patient placed in bed after shower. Patient had one further emesis episode on his body. Patient provided with new gown and sheets because he laid back in bed and covered himself with them. Ativan 2mg IVP administered at this time. Bed alarm turned on. Bed in lowest setting with wheels locked in place. Call light within reach. HOB elevated to above 30 degrees.
--- NOTE | 2024-07-10 05:18 | NUR ---
Emesis Bed alarm turned on and when nurse stepped into the room to check the patient was already walking briskly towards restroom. Patient advised to sit down due to unsteady gait. Patient voiced needed to use the restroom. Patient was advised to let nursing staff know when he needs to ambulate to the restroom for assistance. Patient assisted back to side of bed and sat down. Before urinal was provided patient had a large emesis episode on right side of bed. Nurse stayed with patient until emesis episode over. Patient laid back down and covered himself with blankets. Housekeeping was contacted to mop room and patient was provided with zofran 4mg IVP for nausea at this time.
--- NOTE | 2024-07-10 05:20 | NUR ---
[employer] hospitalist Called the answering service due to patient's multiple count of emesis episodes. Pending call back from Mirian SOL.
--- NOTE | 2024-07-10 06:59 | NUR ---
Verbal order given by Dr. Farley to discontinue EEG order.
[2024-07-10] MEDS: MULTIVITAMIN TABLET PO SCH (10:17)
[2024-07-10] MEDS: MULTIVITAMIN TABLET PO ONE (10:18)
[2024-07-10] MEDS: THIAMINE HCL 100 MG/ML 2ML VIAL IVP SCH (10:19)
[2024-07-10] MEDS: THIAMINE HCL 100 MG/ML 2ML VIAL IM ONE (10:19)
--- NOTE | 2024-07-10 14:20 | PN ---
[facility] PROGRESS NOTE Date of Service: Jul 10, 2024 Time of Service: 14:20 SUBJECTIVE: This is a 23-year-old female that presents in ED with chief complaints of having a mechanical fall she assumed maybe she had a seizure and came to ED for further evaluation and treatment. Apparently patient is on ant seizure medication however noncompliance has not be taking her medication over a year. His last siezure was a year ago. Patient's smokes marijuana last marijuana use was two days ago patient had alcohol consumption last night had seven beers. He reports he drinks on a daily basis. Patient received loading dose of Keppra and IV fluids. Patient was seen in ED 10 patient was sleeping however was easily aroused answer all my questions appropriately. Denied chest pain or shortness for breath. Discussed the plan of care answer all questions. 07/10/24 Patient was seen at bedside. He was given Ativan earlier due to agitation, was asleep when I went to examine him. I could not get any history from the patient and there was no family member at the bedside during our rounds. [facility] neuro was consulted and they requested MRI brain with and without contrast and EEG and recommended p.r.n. benzos for further treatment and to continue Keppra for now given the unclear history of seizure from alcohol withdrawal versus epilepsy. REVIEW OF SYSTEMS Could not assess as the patient was asleep PHYSICAL EXAM GENERAL APPEARANCE: The patient is asleep, difficult to arouse, in no acute cardiopulmonary distress. NEUROLOGICAL: Cranial nerves II-XII grossly intact. Motor is 5/5 in bilateral upper and lower extremities proximal to distal. No sensory deficits. HEENT: Face is symmetric. NECK: Supple. No JVD. No thyromegaly. No submental, submandibular, pre- /postauricular, occipital or supraclavicular lymphadenopathy. CHEST: Normal chest expansion. No Telemetry. LUNGS: Absence of any rales, rhonchi or any wheezing. CARDIOVASCULAR: Regular. S1 and S2 normal. No appreciable rubs, murmurs or gallops. ABDOMEN: Soft, nontender, and nondistended. There is no rebound, voluntary guarding, or rigidity. : Deferred. No Roy. EXTREMITIES: Non-edematous and not cyanotic. No clubbing. Good capillary refill. SKIN: No skin breakdown. Vital Signs (last 8hr) Date Time Temp Pulse Resp B/P (MAP) Pulse Ox O2 Delivery O2 Flow Rate FiO2 07/10/24 08:00 99.0 109 19 143/95 95 Room Air LABS: Laboratory: Test 07/09/24 21:06 07/09/24 16:54 07/09/24 14:50 07/09/24 13:40 Range/Units Lactic Acid Level 2.8 H 0.8-2.5 mmol/L White Blood Count 21.8 H 4.8-10.8 K/uL Red Blood Count 5.12 4.50-6.20 MIL/uL Hemoglobin 15.0 14.0-18.0 g/dL Hematocrit 43.2 42-54 % Mean Corpuscular Volume 84.4 79-99 fL Mean Corpuscular Hemoglobin 29.3 27.0-33.0 pg Mean Corpuscular Hemoglobin Concent 34.7 32.0-36.0 g/dL Red Cell Distribution Width 11.6 11.0-15.5 % Platelet Count 277 130-400 K/uL Mean Platelet Volume 9.8 7.5-10.5 fL Immature Granulocyte % (Auto) 1.6 H 0-1 % Neutrophils (%) (Auto) 89.7 H 40.0-77.0 % Lymphocytes (%) (Auto) 2.3 L 21.0-51.0 % Monocytes (%) (Auto) 6.1 3.0-13.0 % Eosinophils (%) (Auto) 0.0 0.0-8.0 % Basophils (%) (Auto) 0.3 0.0-5.0 % Neutrophils # (Auto) 19.5 H 1.8-7.7 K/uL Lymphocytes # (Auto) 0.5 L 1.0-4.8 K/uL Monocytes # (Auto) 1.3 H 0.1-1.0 K/uL Eosinophils # (Auto) 0.00 0.00-0.70 K/uL Basophils # (Auto) 0.06 0.00-0.20 K/uL Absolute Immature Granulocyte (auto 0.35 0-1 K/uL Nucleated Red Blood Cells 0.0 0.0-0.19 % Sodium Level 144 136-145 mmol/L Potassium Level 4.5 3.5-5.1 mmol/L Chloride Level 112 H 101-111 mmol/L Carbon Dioxide Level 23 21-32 mmol/L Blood Urea Nitrogen 20 H 7-18 mg/dL Creatinine 1.7 H 0.5-1.3 mg/dL Glomerular Filtration Rate Calc 57 >90 mL/min Random Glucose 96 70-105 mg/dL Total Calcium 7.8 L 8.5-10.1 mg/dL Magnesium Level 2.80 H 1.80-2.40 mg/dL Total Bilirubin 0.7 0.2-1.0 mg/dL Aspartate Amino Transf (AST/SGOT) 37 10-37 U/L Alanine Aminotransferase (ALT/SGPT) 55 12-78 U/L Alkaline Phosphatase 52 50-136 U/L Total Protein 5.8 L 6.0-8.3 g/dL Albumin 3.3 L 3.5-5.0 g/dL Serum Alcohol < 3 0-10 mg/dL Total Creatine Kinase 582 #*H 21-232 U/L Troponin I High Sensitivity 47 4-75 ng/L Segmented Neutrophils % 80 H 40-70 % Band Neutrophils % 13 H 0-2 % Lymphocytes % (Manual) 3 L 22-44 % Monocytes % (Manual) 4 2-9 % Differential Comment MANUAL DIFFERENTIAL White Cell Morphology Comment CONSISTENT W/DIFF Platelet Morphology Comment ADEQUATE Red Blood Cell Morphology ANISO 1+ Phenytoin (Dilantin) Level < 0.5 L 10.0-20.0 mcg/mL Valproic Acid (Depakene) Level 4 L 50-100 mcg/mL Test 07/09/24 13:15 Range/Units Urine Color LIGHT-YELLOW YELLOW Urine Appearance CLEAR CLEAR Urine pH 5.0 5.0-8.0 Urine Specific [place] 1.017 1.001-1.031 Urine Protein 30 H NEGATIVE mg/dL Urine Glucose (UA) >=1000 H NEGATIVE mg/dL Urine Ketones 10 H NEGATIVE mg/dL Urine Occult Blood MODERATE H NEGATIVE Urine Nitrate NEGATIVE NEGATIVE Urine Bilirubin NEGATIVE NEGATIVE mg/dL Urine Urobilinogen 0.2 0.2-1.0 mg/dL Urine Leukocyte Esterase NEGATIVE NEGATIVE Wojciech/uL Urine RBC 2-5 H 0-1 /HPF Urine WBC 0-1 0-1 /HPF Urine Squamous Epithelial Cells RARE 0-2 /HPF Urine Uric Acid Crystals RARE None Seen /LPF Urine Bacteria RARE None Seen /HPF Urine Opiates Screen NEGATIVE NEGATIVE Urine Barbiturates Screen NEGATIVE NEGATIVE Urine Phencyclidine Screen NEGATIVE NEGATIVE Urine Amphetamines Screen NEGATIVE NEGATIVE Urine Benzodiazepines Screen NEGATIVE NEGATIVE Urine Cocaine Screen NEGATIVE NEGATIVE Urine Marijuana (THC) Screen POSITIVE H NEGATIVE Current Medications Medications (Trade) Dose Ordered Sig/Barber Route PRN Reason Start Time Stop Time Status Last Admin Dose Admin Acetaminophen (TYLenol 325MG TAB) 650 mg Q4H PRN PO TEMPERATURE GREATER THAN 101.5 07/09/24 16:30 08/08/24 16:29 Ceftriaxone Sodium (Rocephin 2gm Inj) 2 gm Q24H IVPB 07/09/24 16:30 07/19/24 16:29 Chlordiazepoxide HCl (LIBrium 25 MG CAP) 25 mg Q2H PRN PO ALCOHOL WITHDRAWAL PROTOCOL 07/09/24 17:00 07/16/24 16:59 07/10/24 10:17 25 MG Levetiracetam (kepPRA 500 MG TABLET) 500 mg BID PO 07/09/24 21:00 08/08/24 20:59 07/10/24 10:18 500 MG Levetiracetam (kepPRA 500 MG/5 ML SD VIAL) 1,000 mg ONCE IV 07/09/24 14:30 07/10/24 08:30 DC 07/09/24 14:52 1,000 MG Lorazepam (AtiVAN) 2 mg Q4H PRN IVP ALCOHOL WITHDRAWAL PROTOCOL 07/09/24 17:00 07/16/24 16:59 07/10/24 02:58 2 MG Magnesium Sulfate 50 ml @ 0 mls/hr PROTOCOL PRN IV low mag level 07/09/24 16:30 08/08/24 16:29 Multivitamins Therapeutic (Multivitamin Tablet) 1 tab DAILY PO 07/10/24 09:00 08/09/24 08:59 07/10/24 10:17 1 TAB Ondansetron HCl (zoFRAN 4MG INJ) 4 mg Q6H PRN IVP NAUSEA/VOMITING 07/09/24 16:30 08/08/24 16:29 07/10/24 05:18 4 MG Pharmacy Profile Note (Pharmacy Communication) 1 each PROTOCOL PRN MISC ETOH Withdrawal Score changes 07/09/24 17:00 07/16/24 16:59 Potassium Chloride 100 ml @ 100 mls/hr AD PRN IV POTASSIUM PROTOCOL 07/09/24 16:30 08/08/24 16:29 Potassium Chloride (K-Dur/Klor-Con 20meq) 20 meq AD PRN PO POTASSIUM PROTOCOL 07/09/24 16:30 08/08/24 16:29 Potassium Chloride (KCl 10% Elixir 20meq/15ml) 20 meq AD PRN PO POTASSIUM PROTOCOL 07/09/24 16:30 08/08/24 16:29 Sodium Chloride 1,000 ml @ 100 mls/hr Q10H IV 07/09/24 16:30 08/08/24 16:29 07/09/24 18:25 100 MLS/HR Thiamine HCl (Vitamin B-1) 100 mg DAILY IVP 07/10/24 09:00 08/09/24 08:59 07/10/24 10:19 100 MG Thiamine HCl 100 mg/Folic Acid 1 mg/Multivitamins/ Minerals 10 ml/ Sodium Chloride 1,011.2 ml @ 100 mls/ hr Q24H IV 07/09/24 17:00 07/12/24 03:07 07/09/24 18:25 100 MLS/HR DIAGNOSTICS / RADIOLOGY: REASON: fall ORDERING PHYSICIAN: AV EAST MD PROCEDURE: CERV 2 3VW - CERV SPINE 2-3VWS CERV SPINE 2-3VWS: 07/09/2024 1:02 PM PREMIX CONCRETE BATCHER CLINICAL HISTORY: fall COMPARISON: None TECHNIQUE: 4 images of the cervical spine were obtained. FINDINGS: The lung apices are clear. There is no fracture or destructive lesion. The vertebral bodies and posterior elements are unremarkable. The alignment, discs, and discovertebral relationships are normal. There is no evidence of instability on these views. IMPRESSION: Normal cervical spine. REASON: seizure/ fall ORDERING PHYSICIAN: AV EAST MD PROCEDURE: HEAD WO - CT HEAD/BRAIN W/O CONTRAST CT HEAD/BRAIN W/O CONTRAST CLINICAL HISTORY: seizure/ fall COMPARISON: None TECHNIQUE: Multiple sequential axial images of the head were obtained from the base of the skull through vertex. CT was performed with one or more of the following dose reduction techniques: automated exposure control, adjustment of the mA and/or kV according to patient size, or use of iterative reconstruction technique FINDINGS: The brain parenchyma and CSF spaces are unremarkable. The orbital contents, paranasal sinuses and mastoid air cells are within normal limits. The calvarium is intact. IMPRESSION: Normal study ASSESSMENT: Sirs with dysfunction POA syncope versus seizure episode with mechanical fall POA possible Seizure episode secondary to hydration,and induced marijuana PERRY prerenal dehydration POA mild rhabdomyolysis POA positive Marijuana abuse POA ETOH dependency PLAN: Will order EEG and serum prolactin start on GI soft dietetic technician: Zachary Myers Telemedicine will follow recommendations. Received loading dose of Keppra we will continue [address] head was negative IVF's: NS at 100 ml/hr Rocephin 2 gm IV daily, urine culture labs in am: cbc,cmp, mag. avoid NSAIDs, strict I.O CIWA PROTOCOL thiamine HCL 100 mg IV now then daily MVI now then daily PRN: MEDICATIONS Tylenol 650 mg po every 4 hrs for fever Zofran 4 mg IV every 6 hrs for n/v Hydralazine 10 mg IV every 4 hrs systolic pressure > 160 Supportive measures: DVT ppx, GI ppx ATTESTATION BY PHYSICIAN I have seen and examined the patient. I reviewed the documentation, medical decision making, and treatment plan as noted by the resident provider above. I agree with the findings and plan of care. Edison Kelley MD, NIHITHA MD Jul 10, 2024 14:20
--- NOTE | 2024-07-10 15:08 | NUR ---
PER DR STEVENS, EEG CANCELLED
[2024-07-10] MEDS ORDERED: GADOTERATE MEGLUMINE 10 MMOL/20 ML VIAL IV ONE (16:55)
--- NOTE | 2024-07-10 17:11 | HMCIMG ---
MR BRAIN WWO CON REASON: Seizures COMPARISON: There are no prior MRI scans available for comparison. TECHNIQUE: Routine cerebral imaging protocol was performed. Images are also obtained pre and post gadolinium contrast infusion. There is mild motion artifact on multiple image sequences. CONTRAST: 19 cc Clariscan IV. FINDINGS: There is normal appearing brain parenchyma. There are no focal mass lesions. There are no areas of abnormal contrast enhancement or abnormal signal intensity. Ventricles and sulci appear normal. Posterior fossa and brainstem structures appear unremarkable. There is no evidence of intracranial hemorrhage. Diffusion-weighted images are negative for an acute ischemic process. There are no abnormal fluid collections. Extracranial soft tissues appear normal as well. IMPRESSION: 1. Normal pre and postcontrast MRI of the brain.
--- NOTE | 2024-07-10 20:30 | NUR ---
Emesis episode Patient noted with emesis episode at bedside. Patient's respirations even and unlabored. No distress noted at this time. Zofran 4mg IVP given at this time.
--- NOTE | 2024-07-10 21:05 | NUR ---
Nurse note Patient's 18G IV to right antecubital vein noted infiltrated. IV discontinued at this time. Successful 20G IV to left forearm. Patient tolerated venipuncture well. Banana bag continued at this time.
[2024-07-11] VITALS (7 sets, daily range): BP systolic 129–149; BP diastolic 80–100; PULSE 82–103; RESP 16–18; TEMP 98.4–99; O2SAT 98
[2024-07-11 05:23] LABS: HEMATOCRIT 40.7 % (42-54); MEAN CORPUSCULAR HEMOGLOBIN 29.2 pg (27.0-33.0); MEAN CORPUSCULAR HGB CONC 33.4 g/dL (32.0-36.0); MEAN CORPUSCULAR VOLUME 87.5 fL (79-99); RED BLOOD CELL COUNT(AUTO) 4.65 MIL/uL (4.50-6.20); RED CELL DISTRIBUTION WIDTH 11.7 % (11.0-15.5)
[2024-07-11 06:06] LABS: CREATININE 5.2 mg/dL (0.5-1.3); POTASSIUM 4.1 mmol/L (3.5-5.1)
--- NOTE | 2024-07-11 06:21 | NUR ---
Abnormal labs reported Called welder setter electron beam machine answering service for [facility] hospitalist group. Pending call back from Keke GRAMAJO to report elevated total CK levels.
--- NOTE | 2024-07-11 06:27 | NUR ---
Orders Keke Jones MERCHANDISE MARKER called back. Labs were reported. Orders given for discontinuation of banana bag and increase NS to 200cc/hr. Orders noted and carried out.
--- NOTE | 2024-07-11 10:48 | NUR ---
DCP: HOME Sw met with pt states he and his Claudia Mathews [phone] live with her parents. 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 Pt uses no in home care services and has no PCP. Community resources were given. Denies ne needs and will return home at ne. Addendum: 07/11/24 at 1055 by FLAKITO APPIAH SS Amended: Links added.
--- NOTE | 2024-07-11 12:08 | EKG ---
[facility] Test Date: 2024-07-11 Test Time: 11:04:46 Pat Name: HUBERT SHEADepartment: 3C Room: 318 1 Gender: M Photographic Process Screen Maker: [id number] : 2000 Requested By: NESHA BAEZ Order Number: [id number] Reading MD: Earl Mathews Measurements Intervals [place] Rate: 104 P: 50 VT: 164 QRS: 23 QRSD: 82 T: 9 QT: 332 QTc: 436 Interpretive Statements Sinus tachycardia Compared to ECG 06/14/2020 01:54:32 Sinus rhythm no longer present Sinus arrhythmia no longer present Electronically Signed On 07-11-2024 18:11:28 7TH GRADE TEACHER by Earl Mathews Please click the below link to view image of tracing.
--- NOTE | 2024-07-11 14:47 | PN ---
[facility] PROGRESS NOTE Date of Service: Jul 11, 2024 Time of Service: 14:38 SUBJECTIVE: This is a 23-year-old female that presents in ED with chief complaints of having a mechanical fall she assumed maybe she had a seizure and came to ED for further evaluation and treatment. Apparently patient is on ant seizure medication however noncompliance has not be taking her medication over a year. His last siezure was a year ago. Patient's smokes marijuana last marijuana use was two days ago patient had alcohol consumption last night had seven beers. He reports he drinks on a daily basis. Patient received loading dose of Keppra and IV fluids. Patient was seen in ED 10 patient was sleeping however was easily aroused answer all my questions appropriately. Denied chest pain or shortness for breath. Discussed the plan of care answer all questions. 07/10/24 Patient was seen at bedside. He was given Ativan/ Librium earlier due to agitation, was asleep when I went to examine him. I could not get any history from the patient and there was no family member at the bedside during our rounds. [facility] neuro was consulted and they requested MRI brain with and without contrast and EEG and recommended p.r.n. benzos for further treatment and to continue Keppra for now given the unclear history of seizure from alcohol withdrawal versus epilepsy. 07/11/24 Patient was seen at bedside. He was awake, alert and oriented. He is hemodynamically stable, has no complaints. Denies nausea, dizziness, headache or weakness. His CK was elevated from yesterday and creatinine went up to 5. Will consult nephrology in view of rhabdomyolysis and PERRY. MRI brain was negative, EEG could not be performed as the patient was unable to remain still during the procedure. REVIEW OF SYSTEMS CONSTITUTIONAL: Denies fevers, chills, or night sweats. No unintentional weight loss reported. NEUROLOGICAL: Denies headache, amaurosis fugax, motor weakness, sensory deficit, vertigo/spinning sensation, gait abnormalities, or tremors. ENT: No hearing loss, otalgia, otorrhea, rhinitis, rhinorrhea, hoarseness, or sore throat. CARDIOVASCULAR: Denies any exertional angina, dyspnea on exertion, orthopnea, paroxysmal nocturnal dyspnea, palpitations, life-threatening arrhythmias, claudication. PULMONARY: Denies any shortness of breath, cough, phlegm/sputum, hemoptysis, pleuritic chest pain. SLEEP: Denies morning headaches, daytime somnolence or napping. Denies difficulty falling asleep, staying asleep, waking from sleep. Denies knowledge of snoring. GASTROINTESTINAL: Denies any type of dysphagia to either liquids or solids. Denies nausea, vomiting, pyrosis, early satiety, abdominal pain, diarrhea, constipation, or changes in stool consistency or caliber. Denies coffee-ground emesis, hematemesis, hematochezia, or melanotic stools. GENITOURINARY: Denies frequency, urgency, nocturia, hematuria or incontinence (Storage/Irritative symptoms.) Low urinary stream, straining to void, urinary intermittency or hesitancy, splitting of the voiding stream, terminal dribbling. ENDOCRINOLOGIC: Denies polyuria, polydipsia, polyphagia or heat/cold intolerances. HEMATOLOGIC: Denies thrombophilia/previous clots, or coagulopathy/bleeding disorders. ONCOLOGIC: Denies personal history of malignancy. DERMATOLOGIC: Denies rashes or pruritus. PSYCHIATRIC: Denies any suicidal or homicidal ideation. Denies hallucinations. PHYSICAL EXAM GENERAL APPEARANCE: The patient is asleep, difficult to arouse, in no acute cardiopulmonary distress. NEUROLOGICAL: Cranial nerves II-XII grossly intact. Motor is 5/5 in bilateral upper and lower extremities proximal to distal. No sensory deficits. HEENT: Face is symmetric. NECK: Supple. No JVD. No thyromegaly. No submental, submandibular, pre- /postauricular, occipital or supraclavicular lymphadenopathy. CHEST: Normal chest expansion. No Telemetry. LUNGS: Absence of any rales, rhonchi or any wheezing. CARDIOVASCULAR: Regular. S1 and S2 normal. No appreciable rubs, murmurs or gallops. ABDOMEN: Soft, nontender, and nondistended. There is no rebound, voluntary guarding, or rigidity. : Deferred. No Roy. EXTREMITIES: Non-edematous and not cyanotic. No clubbing. Good capillary refill. SKIN: No skin breakdown. Vital Signs (last 8hr) Date Time Temp Pulse Resp B/P (MAP) Pulse Ox O2 Delivery O2 Flow Rate FiO2 07/11/24 12:18 98.8 88 18 137/89 99 07/11/24 09:28 98 Room Air* 0 21 07/11/24 08:05 98.4 82 16 146/85 98 LABS: Laboratory: Test 07/11/24 04:50 07/09/24 16:54 07/09/24 14:50 Range/Units White Blood Count 15.0 H 4.8-10.8 K/uL Red Blood Count 4.65 4.50-6.20 MIL/uL Hemoglobin 13.6 L 14.0-18.0 g/dL Hematocrit 40.7 L 42-54 % Mean Corpuscular Volume 87.5 79-99 fL Mean Corpuscular Hemoglobin 29.2 27.0-33.0 pg Mean Corpuscular Hemoglobin Concent 33.4 32.0-36.0 g/dL Red Cell Distribution Width 11.7 11.0-15.5 % Platelet Count 229 130-400 K/uL Mean Platelet Volume 9.9 7.5-10.5 fL Nucleated Red Blood Cells 0.0 0.0-0.19 % Sodium Level 140 136-145 mmol/L Potassium Level 4.1 3.5-5.1 mmol/L Chloride Level 108 101-111 mmol/L Carbon Dioxide Level 18 L 21-32 mmol/L Blood Urea Nitrogen 32 H 7-18 mg/dL Creatinine 5.2 H 0.5-1.3 mg/dL Glomerular Filtration Rate Calc 15 >90 mL/min Random Glucose 96 70-105 mg/dL Lactic Acid Level 2.0 0.8-2.5 mmol/L Total Calcium 8.4 L 8.5-10.1 mg/dL Total Creatine Kinase 3851 #*H 21-232 U/L Immature Granulocyte % (Auto) 1.6 H 0-1 % Neutrophils (%) (Auto) 89.7 H 40.0-77.0 % Lymphocytes (%) (Auto) 2.3 L 21.0-51.0 % Monocytes (%) (Auto) 6.1 3.0-13.0 % Eosinophils (%) (Auto) 0.0 0.0-8.0 % Basophils (%) (Auto) 0.3 0.0-5.0 % Neutrophils # (Auto) 19.5 H 1.8-7.7 K/uL Lymphocytes # (Auto) 0.5 L 1.0-4.8 K/uL Monocytes # (Auto) 1.3 H 0.1-1.0 K/uL Eosinophils # (Auto) 0.00 0.00-0.70 K/uL Basophils # (Auto) 0.06 0.00-0.20 K/uL Absolute Immature Granulocyte (auto 0.35 0-1 K/uL Magnesium Level 2.80 H 1.80-2.40 mg/dL Total Bilirubin 0.7 0.2-1.0 mg/dL Aspartate Amino Transf (AST/SGOT) 37 10-37 U/L Alanine Aminotransferase (ALT/SGPT) 55 12-78 U/L Alkaline Phosphatase 52 50-136 U/L Total Protein 5.8 L 6.0-8.3 g/dL Albumin 3.3 L 3.5-5.0 g/dL Serum Alcohol < 3 0-10 mg/dL Troponin I High Sensitivity 47 4-75 ng/L Current Medications Medications (Trade) Dose Ordered Sig/Barber Route PRN Reason Start Time Stop Time Status Last Admin Dose Admin Acetaminophen (TYLenol 325MG TAB) 650 mg Q4H PRN PO TEMPERATURE GREATER THAN 101.5 07/09/24 16:30 08/08/24 16:29 Ceftriaxone Sodium (Rocephin 2gm Inj) 2 gm Q24H IVPB 07/09/24 16:30 07/19/24 16:29 07/10/24 17:26 2 GM Chlordiazepoxide HCl (LIBrium 25 MG CAP) 25 mg Q2H PRN PO ALCOHOL WITHDRAWAL PROTOCOL 07/09/24 17:00 07/16/24 16:59 07/10/24 10:17 25 MG Levetiracetam (kepPRA 500 MG TABLET) 500 mg BID PO 07/09/24 21:00 08/08/24 20:59 07/11/24 09:28 500 MG Levetiracetam (kepPRA 500 MG/5 ML SD VIAL) 1,000 mg ONCE IV 07/09/24 14:30 07/10/24 08:30 DC 07/09/24 14:52 1,000 MG Lorazepam (AtiVAN) 2 mg Q4H PRN IVP ALCOHOL WITHDRAWAL PROTOCOL 07/09/24 17:00 07/16/24 16:59 07/10/24 02:58 2 MG Magnesium Sulfate 50 ml @ 0 mls/hr PROTOCOL PRN IV low mag level 07/09/24 16:30 1/7/25 16:29 Multivitamins Therapeutic (Multivitamin Tablet) 1 tab DAILY PO 07/10/24 09:00 08/09/24 08:59 07/11/24 09:28 1 TAB Ondansetron HCl (zoFRAN 4MG INJ) 4 mg Q6H PRN IVP NAUSEA/VOMITING 07/09/24 16:30 08/08/24 16:29 07/10/24 20:30 4 MG Pharmacy Profile Note (Pharmacy Communication) 1 each PROTOCOL PRN MISC ETOH Withdrawal Score changes 07/09/24 17:00 07/16/24 16:59 Potassium Chloride 100 ml @ 100 mls/hr AD PRN IV POTASSIUM PROTOCOL 07/09/24 16:30 08/08/24 16:29 Potassium Chloride (K-Dur/Klor-Con 20meq) 20 meq AD PRN PO POTASSIUM PROTOCOL 07/09/24 16:30 08/08/24 16:29 Potassium Chloride (KCl 10% Elixir 20meq/15ml) 20 meq AD PRN PO POTASSIUM PROTOCOL 07/09/24 16:30 08/08/24 16:29 Sodium Chloride 1,000 ml @ 200 mls/hr Q5H IV 07/09/24 16:30 08/08/24 16:29 07/11/24 12:42 200 MLS/HR Thiamine HCl (Vitamin B-1) 100 mg DAILY IVP 07/10/24 09:00 08/09/24 08:59 07/11/24 09:28 100 MG Thiamine HCl 100 mg/Folic Acid 1 mg/Multivitamins/ Minerals 10 ml/ Sodium Chloride 1,011.2 ml @ 100 mls/ hr Q24H IV 07/09/24 17:00 07/11/24 06:27 DC 07/10/24 17:34 100 MLS/HR DIAGNOSTICS / RADIOLOGY: [ ] REASON: Seizures ORDERING PHYSICIAN: GILMA SUNG [employer] OPERATOR PROCEDURE: BRAIN WWO - MR BRAIN WWO CON MR BRAIN WWO CON REASON: Seizures COMPARISON: There are no prior MRI scans available for comparison. TECHNIQUE: Routine cerebral imaging protocol was performed. Images are also obtained pre and post gadolinium contrast infusion. There is mild motion artifact on multiple image sequences. CONTRAST: 19 cc Clariscan IV. FINDINGS: There is normal appearing brain parenchyma. There are no focal mass lesions. There are no areas of abnormal contrast enhancement or abnormal signal intensity. Ventricles and sulci appear normal. Posterior fossa and brainstem structures appear unremarkable. There is no evidence of intracranial hemorrhage. Diffusion-weighted images are negative for an acute ischemic process. There are no abnormal fluid collections. Extracranial soft tissues appear normal as well. IMPRESSION: 1. Normal pre and postcontrast MRI of the brain. ASSESSMENT: Sirs with dysfunction POA syncope versus seizure episode with mechanical fall POA possible Seizure episode secondary to hydration,and induced marijuana PERRY prerenal dehydration POA mild rhabdomyolysis POA positive Marijuana abuse POA ETOH dependency PLAN: will consult nephrology in regards to PERRY and rhabdomyolysis start on GI soft dietitian assistant: [place] [facility] will follow recommendations. Received loading dose of Keppra we will continue [address] head was negative IVF's: NS at 200 ml/hr Rocephin 2 gm IV daily, urine culture labs in am: cbc,cmp, mag. avoid NSAIDs, strict I.O CIWA PROTOCOL thiamine HCL 100 mg IV now then daily MVI now then daily PRN: MEDICATIONS Tylenol 650 mg po every 4 hrs for fever Zofran 4 mg IV every 6 hrs for n/v Hydralazine 10 mg IV every 4 hrs systolic pressure > 160 Supportive measures: DVT ppx, GI ppx ATTESTATION BY PHYSICIAN I have seen and examined the patient. I reviewed the documentation, medical decision making, and treatment plan as noted by the resident provider above. I agree with the findings and plan of care. Edison Kelley MD, NIHITHA MD Jul 11, 2024 14:47
[2024-07-11 16:07] LABS: CHLORIDE,URINE RANDOM 76 mmol/L (110-250); POTASSIUM,URINE RANDOM 11 mmol/L (25-125); SODIUM,URINE RANDOM 68 mmol/l (40-220)
--- NOTE | 2024-07-11 17:44 | CONS ---
REFERRING PHYSICIAN: Dannie Velez MD REASON FOR CONSULTATION: Renal failure. HISTORY OF PRESENT ILLNESS: A 23-year-old male with a history of seizures. The patient apparently been noncompliant with his seizure medications. The patient had a fall at home. The patient was brought into the Emergency Room. In ER, the patient was found to have underlying renal dysfunction with an elevated BUN and creatinine. The patient's urinalysis did reveal significant hematuria. The patient with evidence of rhabdomyolysis and the patient is being seen in consultation for all of the above. PAST MEDICAL HISTORY: Seizures. SOCIAL HISTORY: Does have history of the marijuana use. FAMILY HISTORY: There is no renal disease in the family. ALLERGIES: There are no allergies. MEDICATIONS: All noted. REVIEW OF SYSTEMS: GENERAL: He is feeling somewhat improved since admission. HEENT: No change in vision. No change in hearing. CARDIOVASCULAR: No current chest pains or palpitations. PULMONARY: No shortness of breath. GASTROINTESTINAL: He is tolerating diet. MUSCULOSKELETAL: Complains of weakness. NEUROLOGIC: No seizures or focal deficits. PSYCHIATRIC: No history of hallucinations or psychosis. ENDOCRINE: He denies diabetes mellitus or thyroid disease. HEME: No history of anemia or malignancy. PHYSICAL EXAMINATION: VITAL SIGNS: Blood pressure 137/89, pulse in the 80s. GENERAL: He is a chronically ill male, young, lying in bed on the medical floor. HEENT: Atraumatic. Pupils equal, roving to light. Oropharynx is without exudate. Nares clear. NECK: There is no JVP. There is no thyromegaly, no mass. CARDIOVASCULAR: Regular. There is no S3, S4 gallop. LUNGS: Coarse with equal thoracic movement. ABDOMEN: Soft, nondistended, nontender. EXTREMITIES: Reveal no clubbing, no cyanosis. NEUROLOGIC: No seizures or focal deficits. He is awake, he is alert, he is oriented. PSYCHIATRIC: No history of hallucinations or psychosis. ENDOCRINE: He denies any diabetes mellitus or thyroid disease. SKIN: Reveals no rash or nodules. BACK: There is no CVA tenderness. There are no back deformities. LABORATORY DATA: Sodium 140, potassium is 4, chloride 108, bicarbonate 18, BUN 32, creatinine is 4.2, calcium is 8.4. CPK is 3800. Albumin is 2.3. Hemoglobin 13, hematocrit 40, white cell count is 15,000. Urine drug screen is positive for marijuana. Valproic acid low as noted. IMPRESSION: * Acute renal failure. * Rhabdomyolysis. * Electrolyte abnormalities. * History of drug use. PLAN: The patient remains on the IV hydration. The patient has had worsening renal dysfunction. There is no acute need for any form of renal replacement therapy. We will follow up the chemistries in the a.m. and continue to follow the patient closely. The patient with multiple questions, all of which were answered. TID: [id number] RECEIPT: [id number]
[2024-07-12] VITALS (8 sets, daily range): BP systolic 147–163; BP diastolic 93–103; PULSE 77–94; RESP 16–18; TEMP 97.7–98.9; O2SAT 97–98
--- NOTE | 2024-07-12 00:17 | NUR ---
Nurse note Patient noted walking back from restroom. Patient asked if he was okay. Patient responded "Yes I'm okay". Patient heard vomiting into emesis bag. Zofran 4mg IVP provided and administered to patient at this time. x2 emesis bags noted at bedside table. Total emesis output 600cc.
[2024-07-12 05:48] LABS: BASOPHILS # (AUTO) 0.03 K/uL (0.00-0.20); BASOPHILS % (AUTO) 0.2 % (0.0-5.0); HEMATOCRIT 41.8 % (42-54); IMMATURE GRANULOCYTE ABSOLUTE 0.09 K/uL (0-1); LYMPHOCYTES # (AUTO) 0.9 K/uL (1.0-4.8); LYMPHOCYTES % (AUTO) 7.5 % (21.0-51.0); MEAN CORPUSCULAR HEMOGLOBIN 29.3 pg (27.0-33.0); MEAN CORPUSCULAR VOLUME 86.4 fL (79-99); MONOCYTES # (AUTO) 0.8 K/uL (0.1-1.0); MONOCYTES % (AUTO) 6.4 % (3.0-13.0); NEUTROPHILS # (AUTO) 10.7 K/uL (1.8-7.7); NEUTROPHILS % (AUTO) 85.2 % (40.0-77.0); PLATELET COUNT (AUTO) 234 K/uL (130-400); RED BLOOD CELL COUNT(AUTO) 4.84 MIL/uL (4.50-6.20); RED CELL DISTRIBUTION WIDTH 11.6 % (11.0-15.5); WHITE BLOOD COUNT (AUTO) 12.5 K/uL (4.8-10.8)
[2024-07-12 06:37] LABS: CREATININE 4.2 mg/dL (0.5-1.3); PHOSPHORUS 4.6 mg/dL (2.5-4.9)
--- NOTE | 2024-07-12 08:38 | PN ---
[facility] PROGRESS NOTE Date of Service: Jul 12, 2024 Time of Service: 08:38 SUBJECTIVE: This is a 23-year-old male that presents in ED with chief complaints of having a mechanical fall she assumed maybe she had a seizure and came to ED for further evaluation and treatment. Apparently patient is on ant seizure medication however noncompliance has not be taking her medication over a year. His last siezure was a year ago. Patient's smokes marijuana last marijuana use was two days ago patient had alcohol consumption last night had seven beers. He reports he drinks on a daily basis. Patient received loading dose of Keppra and IV fluids. Patient was seen in ED 10 patient was sleeping however was easily aroused answer all my questions appropriately. Denied chest pain or shortness for breath. Discussed the plan of care answer all questions. 07/10/24 Patient was seen at bedside. He was given Ativan/ Librium earlier due to agitation, was asleep when I went to examine him. I could not get any history from the patient and there was no family member at the bedside during our rounds. [facility] neuro was consulted and they requested MRI brain with and without contrast and EEG and recommended p.r.n. benzos for further treatment and to continue Keppra for now given the unclear history of seizure from alcohol withdrawal versus epilepsy. 07/11/24 Patient was seen at bedside. He was awake, alert and oriented. He is hemodynamically stable, has no complaints. Denies nausea, dizziness, headache or weakness. His CK was elevated from yesterday and creatinine went up to 5. Will consult nephrology in view of rhabdomyolysis and PERRY. MRI brain was negative, EEG could not be performed as the patient was unable to remain still during the procedure. 07/12/24 Patient was seen at bedside. He was awake, alert and oriented. He is hemodynamically stable, has no complaints. Denies nausea, dizziness, headache or weakness. His [place] 3800 [place] 26436, creatinine down from 5 to 4. Patient is clinically doing well, can be discharged to home once his CK and creatinine improve. Patient used to see Dr. Stock , neurologist at [facility] for his seizures few years ago. As per patient, Dr. Stock's office location changed and he could not get in touch with him. Will try to get Dr. Narendra sanches's office contact info to the patient. Patient is noncompliant with his Keppra. REVIEW OF SYSTEMS CONSTITUTIONAL: Denies fevers, chills, or night sweats. No unintentional weight loss reported. NEUROLOGICAL: Denies headache, amaurosis fugax, motor weakness, sensory deficit, vertigo/spinning sensation, gait abnormalities, or tremors. ENT: No hearing loss, otalgia, otorrhea, rhinitis, rhinorrhea, hoarseness, or s ore throat. CARDIOVASCULAR: Denies any exertional angina, dyspnea on exertion, orthopnea, paroxysmal nocturnal dyspnea, palpitations, life-threatening arrhythmias, claudication. PULMONARY: Denies any shortness of breath, cough, phlegm/sputum, hemoptysis, pleuritic chest pain. SLEEP: Denies morning headaches, daytime somnolence or napping. Denies difficulty falling asleep, staying asleep, waking from sleep. Denies knowledge of snoring. GASTROINTESTINAL: Denies any type of dysphagia to either liquids or solids. Denies nausea, vomiting, pyrosis, early satiety, abdominal pain, diarrhea, constipation, or changes in stool consistency or caliber. Denies coffee-ground emesis, hematemesis, hematochezia, or melanotic stools. GENITOURINARY: Denies frequency, urgency, nocturia, hematuria or incontinence (Storage/Irritative symptoms.) Low urinary stream, straining to void, urinary intermittency or hesitancy, splitting of the voiding stream, terminal dribbling. ENDOCRINOLOGIC: Denies polyuria, polydipsia, polyphagia or heat/cold intolerances. HEMATOLOGIC: Denies thrombophilia/previous clots, or coagulopathy/bleeding disorders. ONCOLOGIC: Denies personal history of malignancy. DERMATOLOGIC: Denies rashes or pruritus. PSYCHIATRIC: Denies any suicidal or homicidal ideation. Denies hallucinations. PHYSICAL EXAM GENERAL APPEARANCE: The patient is asleep, difficult to arouse, in no acute cardiopulmonary distress. NEUROLOGICAL: Cranial nerves II-XII grossly intact. Motor is 5/5 in bilateral upper and lower extremities proximal to distal. No sensory deficits. HEENT: Face is symmetric. NECK: Supple. No JVD. No thyromegaly. No submental, submandibular, pre- /postauricular, occipital or supraclavicular lymphadenopathy. CHEST: Normal chest expansion. No Telemetry. LUNGS: Absence of any rales, rhonchi or any wheezing. CARDIOVASCULAR: Regular. S1 and S2 normal. No appreciable rubs, murmurs or gallops. ABDOMEN: Soft, nontender, and nondistended. There is no rebound, voluntary guarding, or rigidity. : Deferred. No Roy. EXTREMITIES: Non-edematous and not cyanotic. No clubbing. Good capillary refill. SKIN: No skin breakdown. Vital Signs (last 8hr) Date Time Temp Pulse Resp B/P (MAP) Pulse Ox O2 Delivery O2 Flow Rate FiO2 07/12/24 04:00 98.1 94 17 158/93 98 Room Air LABS: Laboratory: Test 07/12/24 05:34 07/11/24 15:09 07/11/24 04:50 Range/Units White Blood Count 12.5 H 4.8-10.8 K/uL Red Blood Count 4.84 4.50-6.20 MIL/uL Hemoglobin 14.2 14.0-18.0 g/dL Hematocrit 41.8 L 42-54 % Mean Corpuscular Volume 86.4 79-99 fL Mean Corpuscular Hemoglobin 29.3 27.0-33.0 pg Mean Corpuscular Hemoglobin Concent 34.0 32.0-36.0 g/dL Red Cell Distribution Width 11.6 11.0-15.5 % Platelet Count 234 130-400 K/uL Mean Platelet Volume 9.6 7.5-10.5 fL Immature Granulocyte % (Auto) 0.7 0-1 % Neutrophils (%) (Auto) 85.2 H 40.0-77.0 % Lymphocytes (%) (Auto) 7.5 L 21.0-51.0 % Monocytes (%) (Auto) 6.4 3.0-13.0 % Eosinophils (%) (Auto) 0.0 0.0-8.0 % Basophils (%) (Auto) 0.2 0.0-5.0 % Neutrophils # (Auto) 10.7 H 1.8-7.7 K/uL Lymphocytes # (Auto) 0.9 L 1.0-4.8 K/uL Monocytes # (Auto) 0.8 0.1-1.0 K/uL Eosinophils # (Auto) 0.00 0.00-0.70 K/uL Basophils # (Auto) 0.03 0.00-0.20 K/uL Absolute Immature Granulocyte (auto 0.09 0-1 K/uL Nucleated Red Blood Cells 0.0 0.0-0.19 % Sodium Level 142 136-145 mmol/L Potassium Level 4.0 3.5-5.1 mmol/L Chloride Level 109 101-111 mmol/L Carbon Dioxide Level 19 L 21-32 mmol/L Blood Urea Nitrogen 30 H 7-18 mg/dL Creatinine 4.2 H 0.5-1.3 mg/dL Glomerular Filtration Rate Calc 19 >90 mL/min Random Glucose 95 70-105 mg/dL Total Calcium 8.5 8.5-10.1 mg/dL Phosphorus Level 4.6 2.5-4.9 mg/dL Total Creatine Kinase 14934 #*H 21-232 U/L Urine Random Sodium 68 40-220 mmol/l Urine Random Potassium 11 L 25-125 mmol/L Urine Random Chloride 76 L 110-250 mmol/L Lactic Acid Level 2.0 0.8-2.5 mmol/L Prolactin 11.9 3.6-31.5 ng/mL Current Medications Medications (Trade) Dose Ordered Sig/Barber Route PRN Reason Start Time Stop Time Status Last Admin Dose Admin Acetaminophen (TYLenol 325MG TAB) 650 mg Q4H PRN PO TEMPERATURE GREATER THAN 101.5 07/09/24 16:30 08/08/24 16:29 Ceftriaxone Sodium (Rocephin 2gm Inj) 2 gm Q24H IVPB 07/09/24 16:30 07/19/24 16:29 07/11/24 16:23 2 GM Chlordiazepoxide HCl (LIBrium 25 MG CAP) 25 mg Q2H PRN PO ALCOHOL WITHDRAWAL PROTOCOL 07/09/24 17:00 07/16/24 16:59 07/10/24 10:17 25 MG Levetiracetam (kepPRA 500 MG TABLET) 500 mg BID PO 07/09/24 21:00 08/08/24 20:59 07/11/24 19:36 500 MG Levetiracetam (kepPRA 500 MG/5 ML SD VIAL) 1,000 mg ONCE IV 07/09/24 14:30 07/10/24 08:30 DC 07/09/24 14:52 1,000 MG Lorazepam (AtiVAN) 2 mg Q4H PRN IVP ALCOHOL WITHDRAWAL PROTOCOL 07/09/24 17:00 07/16/24 16:59 07/10/24 02:58 2 MG Magnesium Sulfate 50 ml @ 0 mls/hr PROTOCOL PRN IV low mag level 07/09/24 16:30 08/08/24 16:29 Multivitamins Therapeutic (Multivitamin Tablet) 1 tab DAILY PO 07/10/24 09:00 08/09/24 08:59 07/11/24 09:28 1 TAB Ondansetron HCl (zoFRAN 4MG INJ) 4 mg Q6H PRN IVP NAUSEA/VOMITING 07/09/24 16:30 08/08/24 16:29 07/12/24 00:17 4 MG Pharmacy Profile Note (Pharmacy Communication) 1 each PROTOCOL PRN MISC ETOH Withdrawal Score changes 07/09/24 17:00 07/16/24 16:59 Potassium Chloride 100 ml @ 100 mls/hr AD PRN IV POTASSIUM PROTOCOL 07/09/24 16:30 08/08/24 16:29 Potassium Chloride (K-Dur/Klor-Con 20meq) 20 meq AD PRN PO POTASSIUM PROTOCOL 07/09/24 16:30 08/08/24 16:29 Potassium Chloride (KCl 10% Elixir 20meq/15ml) 20 meq AD PRN PO POTASSIUM PROTOCOL 07/09/24 16:30 08/08/24 16:29 Sodium Chloride 1,000 ml @ 200 mls/hr Q5H IV 07/09/24 16:30 08/08/24 16:29 07/12/24 02:55 200 MLS/HR Thiamine HCl (Vitamin B-1) 100 mg DAILY IVP 07/10/24 09:00 08/09/24 08:59 07/11/24 09:28 100 MG Thiamine HCl 100 mg/Folic Acid 1 mg/Multivitamins/ Minerals 10 ml/ Sodium Chloride 1,011.2 ml @ 100 mls/ hr Q24H IV 07/09/24 17:00 07/11/24 06:27 DC 07/10/24 17:34 100 MLS/HR DIAGNOSTICS / RADIOLOGY: REASON: PERRY ORDERING PHYSICIAN: NESHA BAEZ MD PROCEDURE: RENAL - US RENAL SONOGRAM US RENAL SONOGRAM REASON: PERRY COMPARISON: None TECHNIQUE: Renal and bladder sonogram was performed. FINDINGS: Right kidney is 11.3 x 5.6 x 5.8 cm, left is 11.9 x 4.9 x 5.3 cm. There is no mass, stone or hydronephrosis. Urinary bladder appears unremarkable. IMPRESSION: 1. Normal renal and bladder sonogram. ASSESSMENT: Sirs with dysfunction POA syncope versus seizure episode with mechanical fall POA possible Seizure episode secondary to hydration,and induced marijuana PERRY prerenal dehydration POA mild rhabdomyolysis POA positive Marijuana abuse POA ETOH dependency PLAN: will consult nephrology in regards to PERRY and rhabdomyolysis start on GI soft didactic program in dietetics director: Zachary Myers Telemedicine will follow recommendations. Received loading dose of Keppra we will continue [address] head was negative IVF's: NS at 200 ml/hr Rocephin 2 gm IV daily, urine culture labs in am: cbc,cmp, mag. avoid NSAIDs, strict I.O CIWA PROTOCOL thiamine HCL 100 mg IV now then daily MVI now then daily PRN: MEDICATIONS Tylenol 650 mg po every 4 hrs for fever Zofran 4 mg IV every 6 hrs for n/v Hydralazine 10 mg IV every 4 hrs systolic pressure > 160 Supportive measures: DVT ppx, GI ppx ATTESTATION BY PHYSICIAN I have seen and examined the patient. I reviewed the documentation, medical decision making, and treatment plan as noted by the resident provider above. I agree with the findings and plan of care. Edison Kelley MD, NIHITHA MD Jul 12, 2024 08:38
--- NOTE | 2024-07-12 09:46 | HMCIMG ---
US RENAL SONOGRAM REASON: PERRY COMPARISON: None TECHNIQUE: Renal and bladder sonogram was performed. FINDINGS: Right kidney is 11.3 x 5.6 x 5.8 cm, left is 11.9 x 4.9 x 5.3 cm. There is no mass, stone or hydronephrosis. Urinary bladder appears unremarkable. IMPRESSION: 1. Normal renal and bladder sonogram.
--- NOTE | 2024-07-12 13:15 | PN ---
FOLLOWUP PROGRESS NOTE SUBJECTIVE: A 23-year-old male initially presented status post fall. The patient with a history of known seizure activity. The patient was found to have rhabdomyolysis. The patient's creatinine continues to slowly improve. The patient's urine output has greatly improved overnight. He remains with a phosphorus and he is being seen as a followup visit for all of the above. There is no chest pain or palpitations. REVIEW OF SYSTEMS: GENERAL: He is feeling improved. HEENT: No change in vision. No change in hearing. CARDIOVASCULAR: There is no current chest pains or palpitations. PULMONARY: There is no shortness of breath. GASTROINTESTINAL: The patient is now tolerating a diet. MUSCULOSKELETAL: Complains of weakness. PHYSICAL EXAMINATION: VITAL SIGNS: Blood pressure 151/97, pulse in the 70s. GENERAL: Chronically ill male, young, lying in bed on medical floor. HEENT: Head is atraumatic. Pupils equal, roving to light. Oropharynx is without exudate. Nares clear. NECK: There is no JVP. There is no thyromegaly, no mass. CARDIOVASCULAR: Regular. There is no S3, S4 gallop. LUNGS: Coarse with equal thoracic movement. ABDOMEN: Soft, nondistended, nontender. EXTREMITIES: Reveal no clubbing, no cyanosis. NEUROLOGIC: He is awake. He is alert. LABORATORY DATA: Sodium 142, potassium is 4, BUN 30, creatinine 4. Hemoglobin 14, hematocrit 41, white count is 12,000. IMPRESSION: * Acute renal failure. * Rhabdomyolysis. * Electrolyte abnormalities. * Hypertension. PLAN: The patient's creatinine continues to stabilize. The patient's urine output has greatly improved. He continues with the IV hydration, and we will follow the patient closely. All labs can be repeated in the a.m. The patient with multiple questions, all of which were answered. TID: [id number] RECEIPT: [id number]
[2024-07-12] MEDS: 0.9%NACL 1000ML 1,000 ML IV SCH (13:44)
--- NOTE | 2024-07-12 14:50 | CONS ---
CONSULT NOTE: EEG was technically inadequate for interpretation. Please repeat study if continued clinical concern. KEIRY MACK MD Jul 12, 2024 14:49
--- NOTE | 2024-07-12 15:56 | HMCIMG ---
CHEST 1VW REASON: rhabdomyolysis treated with high load of iv fluids COMPARISON: 06/14/2020 FINDINGS: Single view of the chest was obtained. Lungs are clear. Heart size is normal. There is no pulmonary vascular congestion. Mediastinum and bony thorax appear unremarkable. IMPRESSION: 1. Normal single view chest x-ray.
--- NOTE | 2024-07-12 20:11 | NUR ---
EMESIS PATIENT HAS VOMITED 3 TIMES TODAY, CLEAR IN COLOR. NO ABD PAIN, JUST CANNOT HOLD ANYTHING DOWN. NOTIFED MD, NO NEW ORDERS DURING DAY SHIFT.
[2024-07-13] VITALS (7 sets, daily range): BP systolic 145–171; BP diastolic 78–98; PULSE 63–93; RESP 18–20; TEMP 97.6–98.7; O2SAT 97
[2024-07-13 05:27] LABS: BASOPHILS # (AUTO) 0.04 K/uL (0.00-0.20); BASOPHILS % (AUTO) 0.4 % (0.0-5.0); EOSINOPHILS # (AUTO) 0.03 K/uL (0.00-0.70); EOSINOPHILS % (AUTO) 0.3 % (0.0-8.0); HEMATOCRIT 41.1 % (42-54); IMMATURE GRANULOCYTE ABSOLUTE 0.09 K/uL (0-1); LYMPHOCYTES # (AUTO) 1.2 K/uL (1.0-4.8); LYMPHOCYTES % (AUTO) 12.4 % (21.0-51.0); MEAN CORPUSCULAR HEMOGLOBIN 29.1 pg (27.0-33.0); MEAN CORPUSCULAR HGB CONC 33.8 g/dL (32.0-36.0); MONOCYTES # (AUTO) 0.9 K/uL (0.1-1.0); MONOCYTES % (AUTO) 9.8 % (3.0-13.0); NEUTROPHILS # (AUTO) 7.1 K/uL (1.8-7.7); NEUTROPHILS % (AUTO) 76.1 % (40.0-77.0); PLATELET COUNT (AUTO) 264 K/uL (130-400); RED BLOOD CELL COUNT(AUTO) 4.78 MIL/uL (4.50-6.20); RED CELL DISTRIBUTION WIDTH 11.4 % (11.0-15.5); WHITE BLOOD COUNT (AUTO) 9.3 K/uL (4.8-10.8)
[2024-07-13 05:57] LABS: BILIRUBIN,TOTAL 0.8 mg/dL (0.2-1.0); POTASSIUM 3.7 mmol/L (3.5-5.1); TOTAL PROTEIN, SERUM 6.2 g/dL (6.0-8.3)
--- NOTE | 2024-07-13 07:40 | NUR ---
[place] [id number] RECEIVED AT 0638 AND REPORTED TO PRIMARY NURSE JAMEEL KAPLAN TO FOLLOW UP ON.
[2024-07-13] MEDS: LACTULOSE 20 GM/30 ML UDCUP PO ONE (09:57)
[2024-07-13] MEDS: PoTASSium chloRIDE 10MEQ SR 10 MEQ/TAB TAB.SR.24H PO ONE (09:58)
[2024-07-13] MEDS: hydrALAZine 20MG/ML VIAL IV PRN (10:02)
--- NOTE | 2024-07-13 10:54 | PN ---
FOLLOWUP PROGRESS NOTE SUBJECTIVE: A 23-year-old male initially presented status post fall. The patient was found to have acute renal failure as well as rhabdomyolysis. The patient's creatinine continues to slowly improve. The patient remains on the IV hydration. Urine output has greatly improved and he is being seen as a followup visit for all of the above. REVIEW OF SYSTEMS: GENERAL: He is feeling improved. HEENT: No change in vision. No change in hearing. CARDIOVASCULAR: There is no current chest pain or palpitations. PULMONARY: No shortness of breath. GASTROINTESTINAL: He is complaining of some constipation. MUSCULOSKELETAL: Complains of weakness. PHYSICAL EXAMINATION: VITAL SIGNS: Blood pressure 151/98, pulse 80s. GENERAL: He is a chronically ill male, young, lying in bed on medical floor. HEENT: Head is atraumatic. Pupils equal, roving to light. Oropharynx is without exudate. Nares clear. NECK: There is no JVP. There is no thyromegaly, no mass. CARDIOVASCULAR: Regular. There is no S3 or S4 gallop. LUNGS: Coarse with equal thoracic movement. ABDOMEN: Soft, nondistended, nontender. EXTREMITIES: Reveal no clubbing, no cyanosis. NEUROLOGIC: He is awake. He is alert. LABORATORY DATA: Hemoglobin 13, hematocrit 41, white cell count 9000. Sodium 139, potassium 3.7, BUN 26, creatinine is 3. CPK is 14,000. IMPRESSION: 1. Renal dysfunction. 2. Rhabdomyolysis. 3. History of seizures. 4. Constipation. PLAN: The patient's creatinine continues to slowly improve. He remains on aggressive IV hydration. The patient's potassium will be aggressively repleted. He will be given a dose of lactulose with the constipation. I did discuss with the patient if creatinine continues to slowly improve, we can begin discharge planning. We will follow closely and make further recommendations accordingly. TID: [id number] RECEIPT: [id number]
--- NOTE | 2024-07-13 13:59 | PN ---
[facility] PROGRESS NOTE Date of Service: Jul 13, 2024 Time of Service: 13:52 SUBJECTIVE: This is a 23-year-old male that presents in ED with chief complaints of having a mechanical fall she assumed maybe she had a seizure and came to ED for further evaluation and treatment. Apparently patient is on ant seizure medication however noncompliance has not be taking her medication over a year. His last siezure was a year ago. Patient's smokes marijuana last marijuana use was two days ago patient had alcohol consumption last night had seven beers. He reports he drinks on a daily basis. Patient received loading dose of Keppra and IV fluids. Patient was seen in ED 10 patient was sleeping however was easily aroused answer all my questions appropriately. Denied chest pain or shortness for breath. Discussed the plan of care answer all questions. 07/10/24 Patient was seen at bedside. He was given Ativan/ Librium earlier due to agitation, was asleep when I went to examine him. I could not get any history from the patient and there was no family member at the bedside during our rounds. [facility] neuro was consulted and they requested MRI brain with and without contrast and EEG and recommended p.r.n. benzos for further treatment and to continue Keppra for now given the unclear history of seizure from alcohol withdrawal versus epilepsy. 07/11/24 Patient was seen at bedside. He was awake, alert and oriented. He is hemodynamically stable, has no complaints. Denies nausea, dizziness, headache or weakness. His CK was elevated from yesterday and creatinine went up to 5. Will consult nephrology in view of rhabdomyolysis and PERRY. MRI brain was negative, EEG could not be performed as the patient was unable to remain still during the procedure. 07/12/24 Patient was seen at bedside. He was awake, alert and oriented. He is hemodynamically stable, has no complaints. Denies nausea, dizziness, headache or weakness. His CK was elevated from 3800 to 74968, creatinine down from 5 to 4. Patient is clinically doing well, can be discharged to home once his CK and creatinine improve. Patient used to see Dr. Stock , neurologist at [facility] for his seizures few years ago. As per patient, Dr. Stock's office location changed and he could not get in touch with him. Will try to get Dr. Narendra sanches's office contact info to the patient. Patient is noncompliant with his Keppra. 07/13/24 Patient was seen at bedside. He was awake, alert and oriented. He is hemodynamically stable, has no complaints. Denies chest pain, nausea, dizziness, headache or weakness. [place] [address] [place] [address], creatinine down from 4 to 5. Patient is clinically doing well, creatinine slowly improving. Being aggressively repleted. Chest x-ray is negative. His blood pressure was elevated this morning, will start Hydrazaline PRN if systolic is above 160. Will follow nephrology recommendations. REVIEW OF SYSTEMS CONSTITUTIONAL: Denies fevers, chills, or night sweats. No unintentional weight loss reported. NEUROLOGICAL: Denies headache, amaurosis fugax, motor weakness, sensory deficit, vertigo/spinning sensation, gait abnormalities, or tremors. ENT: No hearing loss, otalgia, otorrhea, rhinitis, rhinorrhea, hoarseness, or sore throat. CARDIOVASCULAR: Denies any exertional angina, dyspnea on exertion, orthopnea, paroxysmal nocturnal dyspnea, palpitations, life-threatening arrhythmias, claudication. PULMONARY: Denies any shortness of breath, cough, phlegm/sputum, hemoptysis, pleuritic chest pain. SLEEP: Denies morning headaches, daytime somnolence or napping. Denies difficulty falling asleep, staying asleep, waking from sleep. Denies knowledge of snoring. GASTROINTESTINAL: Denies any type of dysphagia to either liquids or solids. Denies nausea, vomiting, pyrosis, early satiety, abdominal pain, diarrhea, constipation, or changes in stool consistency or caliber. Denies coffee-ground emesis, hematemesis, hematochezia, or melanotic stools. GENITOURINARY: Denies frequency, urgency, nocturia, hematuria or incontinence (Storage/Irritative symptoms.) Low urinary stream, straining to void, urinary intermittency or hesitancy, splitting of the voiding stream, terminal dribbling. ENDOCRINOLOGIC: Denies polyuria, polydipsia, polyphagia or heat/cold intolerances. HEMATOLOGIC: Denies thrombophilia/previous clots, or coagulopathy/bleeding disorders. ONCOLOGIC: Denies personal history of malignancy. DERMATOLOGIC: Denies rashes or pruritus. PSYCHIATRIC: Denies any suicidal or homicidal ideation. Denies hallucinations. PHYSICAL EXAM GENERAL APPEARANCE: The patient is asleep, difficult to arouse, in no acute cardiopulmonary distress. NEUROLOGICAL: Cranial nerves II-XII grossly intact. Motor is 5/5 in bilateral upper and lower extremities proximal to distal. No sensory deficits. HEENT: Face is symmetric. NECK: Supple. No JVD. No thyromegaly. No submental, submandibular, pre- /postauricular, occipital or supraclavicular lymphadenopathy. CHEST: Normal chest expansion. No Telemetry. LUNGS: Absence of any rales, rhonchi or any wheezing. CARDIOVASCULAR: Regular. S1 and S2 normal. No appreciable rubs, murmurs or gallops. ABDOMEN: Soft, nontender, and nondistended. There is no rebound, voluntary guarding, or rigidity. : Deferred. No Roy. EXTREMITIES: Non-edematous and not cyanotic. No clubbing. Good capillary refill. SKIN: No skin breakdown. Vital Signs (last 8hr) Date Time Temp Pulse Resp B/P (MAP) Pulse Ox O2 Delivery O2 Flow Rate FiO2 07/13/24 12:00 98.6 86 18 148/89 98 Room Air 07/13/24 08:00 97 Room Air* 0 21 07/13/24 07:40 98.8 93 20 171/90 98 Room Air 21 LABS: Laboratory: Test 07/13/24 05:09 07/12/24 05:34 07/11/24 15:09 Range/Units White Blood Count 9.3 # 4.8-10.8 K/uL Red Blood Count 4.78 4.50-6.20 MIL/uL Hemoglobin 13.9 L 14.0-18.0 g/dL Hematocrit 41.1 L 42-54 % Mean Corpuscular Volume 86.0 79-99 fL Mean Corpuscular Hemoglobin 29.1 27.0-33.0 pg Mean Corpuscular Hemoglobin Concent 33.8 32.0-36.0 g/dL Red Cell Distribution Width 11.4 11.0-15.5 % Platelet Count 264 130-400 K/uL Mean Platelet Volume 9.6 7.5-10.5 fL Immature Granulocyte % (Auto) 1.0 0-1 % Neutrophils (%) (Auto) 76.1 40.0-77.0 % Lymphocytes (%) (Auto) 12.4 L 21.0-51.0 % Monocytes (%) (Auto) 9.8 3.0-13.0 % Eosinophils (%) (Auto) 0.3 0.0-8.0 % Basophils (%) (Auto) 0.4 0.0-5.0 % Neutrophils # (Auto) 7.1 1.8-7.7 K/uL Lymphocytes # (Auto) 1.2 1.0-4.8 K/uL Monocytes # (Auto) 0.9 0.1-1.0 K/uL Eosinophils # (Auto) 0.03 0.00-0.70 K/uL Basophils # (Auto) 0.04 0.00-0.20 K/uL Absolute Immature Granulocyte (auto 0.09 0-1 K/uL Nucleated Red Blood Cells 0.0 0.0-0.19 % Sodium Level 139 136-145 mmol/L Potassium Level 3.7 3.5-5.1 mmol/L Chloride Level 106 101-111 mmol/L Carbon Dioxide Level 20 L 21-32 mmol/L Blood Urea Nitrogen 26 H 7-18 mg/dL Creatinine 3.0 H 0.5-1.3 mg/dL Glomerular Filtration Rate Calc 29 >90 mL/min Random Glucose 72 70-105 mg/dL Total Calcium 8.5 8.5-10.1 mg/dL Total Bilirubin 0.8 0.2-1.0 mg/dL Aspartate Amino Transf (AST/SGOT) 113 H 10-37 U/L Alanine Aminotransferase (ALT/SGPT) 58 12-78 U/L Alkaline Phosphatase 62 50-136 U/L Total Creatine Kinase 53505 *H 21-232 U/L Total Protein 6.2 6.0-8.3 g/dL Albumin 3.0 L 3.5-5.0 g/dL Phosphorus Level 4.6 2.5-4.9 mg/dL Urine Random Sodium 68 40-220 mmol/l Urine Random Potassium 11 L 25-125 mmol/L Urine Random Chloride 76 L 110-250 mmol/L Current Medications Medications (Trade) Dose Ordered Sig/Barber Route PRN Reason Start Time Stop Time Status Last Admin Dose Admin Acetaminophen (TYLenol 325MG TAB) 650 mg Q4H PRN PO TEMPERATURE GREATER THAN 101.5 07/09/24 16:30 08/08/24 16:29 Ceftriaxone Sodium (Rocephin 2gm Inj) 2 gm Q24H IVPB 07/09/24 16:30 07/19/24 16:29 07/12/24 16:21 2 GM Chlordiazepoxide HCl (LIBrium 25 MG CAP) 25 mg Q2H PRN PO ALCOHOL WITHDRAWAL PROTOCOL 07/09/24 17:00 07/16/24 16:59 07/13/24 11:07 25 MG Hydralazine HCl (APRESOLine 20MG INJ) 10 mg Q6H PRN IV ADMINISTER FOR SBP > 160 07/13/24 10:00 08/12/24 09:59 07/13/24 10:02 10 MG Levetiracetam (kepPRA 500 MG TABLET) 500 mg BID PO 07/09/24 21:00 08/08/24 20:59 07/13/24 09:06 500 MG Levetiracetam (kepPRA 500 MG/5 ML SD VIAL) 1,000 mg ONCE IV 07/09/24 14:30 07/10/24 08:30 DC 07/09/24 14:52 1,000 MG Lorazepam (AtiVAN) 2 mg Q4H PRN IVP ALCOHOL WITHDRAWAL PROTOCOL 07/09/24 17:00 07/16/24 16:59 07/10/24 02:58 2 MG Magnesium Sulfate 50 ml @ 0 mls/hr PROTOCOL PRN IV low mag level 07/09/24 16:30 08/08/24 16:29 Multivitamins Therapeutic (Multivitamin Tablet) 1 tab DAILY PO 07/10/24 09:00 08/09/24 08:59 07/13/24 09:06 1 TAB Ondansetron HCl (zoFRAN 4MG INJ) 4 mg Q6H PRN IVP NAUSEA/VOMITING 07/09/24 16:30 08/08/24 16:29 07/13/24 09:10 4 MG Pharmacy Profile Note (Pharmacy Communication) 1 each PROTOCOL PRN MISC ETOH Withdrawal Score changes 07/09/24 17:00 07/16/24 16:59 Potassium Chloride 100 ml @ 100 mls/hr AD PRN IV POTASSIUM PROTOCOL 07/09/24 16:30 08/08/24 16:29 Potassium Chloride (K-Dur/Klor-Con 20meq) 20 meq AD PRN PO POTASSIUM PROTOCOL 07/09/24 16:30 08/08/24 16:29 Potassium Chloride (KCl 10% Elixir 20meq/15ml) 20 meq AD PRN PO POTASSIUM PROTOCOL 07/09/24 16:30 08/08/24 16:29 Sodium Chloride 1,000 ml @ 0 mls/hr Q0M IV 07/12/24 12:30 08/11/24 12:29 07/12/24 13:44 999 MLS/HR Sodium Chloride 1,000 ml @ 200 mls/hr Q5H IV 07/09/24 16:30 08/08/24 16:29 07/13/24 09:15 200 MLS/HR Thiamine HCl (Vitamin B-1) 100 mg DAILY IVP 07/10/24 09:00 08/09/24 08:59 07/13/24 09:06 100 MG Thiamine HCl 100 mg/Folic Acid 1 mg/Multivitamins/ Minerals 10 ml/ Sodium Chloride 1,011.2 ml @ 100 mls/ hr Q24H IV 07/09/24 17:00 07/11/24 06:27 DC 07/10/24 17:34 100 MLS/HR DIAGNOSTICS / RADIOLOGY: REASON: rhabdomyolysis treated with high load of iv fluids ORDERING PHYSICIAN: NESHA BAEZ MD PROCEDURE: CXR1VW - CHEST 1VW CHEST 1VW REASON: rhabdomyolysis treated with high load of iv fluids COMPARISON: 06/14/2020 FINDINGS: Single view of the chest was obtained. Lungs are clear. Heart size is normal. There is no pulmonary vascular congestion. Mediastinum and bony thorax appear unremarkable. IMPRESSION: 1. Normal single view chest x-ray. ASSESSMENT: Sirs with dysfunction POA syncope versus seizure episode with mechanical fall POA possible Seizure episode secondary to hydration,and induced marijuana PERRY prerenal dehydration POA mild rhabdomyolysis POA positive Marijuana abuse POA ETOH dependency PLAN: will consult nephrology in regards to PERRY and rhabdomyolysis start on GI soft nutrition and dietetics instructor: Zachary Myers Telemedicine will follow recommendations. Received loading dose of Keppra we will continue [address] head was negative IVF's: NS at 200 ml/hr Rocephin 2 gm IV daily, urine culture labs in am: cbc,cmp, mag. avoid NSAIDs, strict I.O CIWA PROTOCOL thiamine HCL 100 mg IV now then daily MVI now then daily PRN: MEDICATIONS Tylenol 650 mg po every 4 hrs for fever Zofran 4 mg IV every 6 hrs for n/v Hydralazine 10 mg IV every 4 hrs systolic pressure > 160 Supportive measures: DVT ppx, GI ppx ATTESTATION BY PHYSICIAN I have seen and examined the patient. I reviewed the documentation, medical decision making, and treatment plan as noted by the resident provider above. I agree with the findings and plan of care. Edison Kelley MD, NIHITHA MD Jul 13, 2024 13:59
[2024-07-13] MEDS: PROMETHAZINE HCL 25 MG/ML 1ML AMPULE IM ONE ×2 (14:09→15:08)
[2024-07-14] VITALS: BP 148/76; PULSE 78; RESP 20; TEMP 98.7
[2024-07-14 04:00] VITALS: BP 115/69; PULSE 76; RESP 20; TEMP 98.2
[2024-07-14 05:33] LABS: BASOPHILS # (AUTO) 0.04 K/uL (0.00-0.20); BASOPHILS % (AUTO) 0.5 % (0.0-5.0); EOSINOPHILS # (AUTO) 0.07 K/uL (0.00-0.70); EOSINOPHILS % (AUTO) 0.9 % (0.0-8.0); IMMATURE GRANULOCYTE ABSOLUTE 0.05 K/uL (0-1); LYMPHOCYTES # (AUTO) 1.3 K/uL (1.0-4.8); LYMPHOCYTES % (AUTO) 17.3 % (21.0-51.0); MEAN CORPUSCULAR HEMOGLOBIN 28.8 pg (27.0-33.0); MEAN CORPUSCULAR HGB CONC 33.9 g/dL (32.0-36.0); MEAN CORPUSCULAR VOLUME 84.8 fL (79-99); MONOCYTES # (AUTO) 0.8 K/uL (0.1-1.0); MONOCYTES % (AUTO) 11.2 % (3.0-13.0); NEUTROPHILS # (AUTO) 5.2 K/uL (1.8-7.7); NEUTROPHILS % (AUTO) 69.4 % (40.0-77.0); PLATELET COUNT (AUTO) 258 K/uL (130-400); RED BLOOD CELL COUNT(AUTO) 4.48 MIL/uL (4.50-6.20); RED CELL DISTRIBUTION WIDTH 11.6 % (11.0-15.5); WHITE BLOOD COUNT (AUTO) 7.5 K/uL (4.8-10.8)
[2024-07-14 06:07] LABS: ALBUMIN 2.9 g/dL (3.5-5.0); BILIRUBIN,TOTAL 0.6 mg/dL (0.2-1.0); CREATININE 2.2 mg/dL (0.5-1.3); MAGNESIUM 1.9 mg/dL (1.80-2.40); PHOSPHORUS 3.8 mg/dL (2.5-4.9); POTASSIUM 3.6 mmol/L (3.5-5.1); TOTAL PROTEIN, SERUM 5.8 g/dL (6.0-8.3)
[2024-07-14] MEDS: MAGNESIUM 2GM PREMIX 50ML 50 ML IV PRN (06:22)
[2024-07-14] MEDS: PoTASSium chloRIDE 20MEQ ER 20 MEQ ERTAB PO PRN (06:22)
[2024-07-14 08:00] VITALS: BP 155/93; PULSE 70; RESP 18; TEMP 98.4
--- NOTE | 2024-07-14 08:54 | PN ---
[facility] PROGRESS NOTE Date of Service: Jul 14, 2024 Time of Service: 08:47 SUBJECTIVE: This is a 23-year-old male that presents in ED with chief complaints of having a mechanical fall she assumed maybe she had a seizure and came to ED for further evaluation and treatment. Apparently patient is on ant seizure medication however noncompliance has not be taking her medication over a year. His last siezure was a year ago. Patient's smokes marijuana last marijuana use was two days ago patient had alcohol consumption last night had seven beers. He reports he drinks on a daily basis. Patient received loading dose of Keppra and IV fluids. Patient was seen in ED 10 patient was sleeping however was easily aroused answer all my questions appropriately. Denied chest pain or shortness for breath. Discussed the plan of care answer all questions. 07/10/24 Patient was seen at bedside. He was given Ativan/ Librium earlier due to agitation, was asleep when I went to examine him. I could not get any history from the patient and there was no family member at the bedside during our rounds. [facility] neuro was consulted and they requested MRI brain with and without contrast and EEG and recommended p.r.n. benzos for further treatment and to continue Keppra for now given the unclear history of seizure from alcohol withdrawal versus epilepsy. 07/11/24 Patient was seen at bedside. He was awake, alert and oriented. He is hemodynamically stable, has no complaints. Denies nausea, dizziness, headache or weakness. His CK was elevated from yesterday and creatinine went up to 5. Will consult nephrology in view of rhabdomyolysis and PERRY. MRI brain was negative, EEG could not be performed as the patient was unable to remain still during the procedure. 07/12/24 Patient was seen at bedside. He was awake, alert and oriented. He is hemodynamically stable, has no complaints. Denies nausea, dizziness, headache or weakness. His CK was elevated from 3800 to 57427, creatinine down from 5 to 4. Patient is clinically doing well, can be discharged to home once his CK and creatinine improve. Patient used to see Dr. Stock , neurologist at [facility] for his seizures few years ago. As per patient, Dr. Stock's office location changed and he could not get in touch with him. Will try to get Dr. Narendra sanches's office contact info to the patient. Patient is noncompliant with his Keppra. 07/13/24 Patient was seen at bedside. He was awake, alert and oriented. He is hemodynamically stable, has no complaints. Denies chest pain, nausea, dizziness, headache or weakness. [place] [address] [place] [address], creatinine down from 4 to 5. Patient is clinically doing well, creatinine slowly improving. Being aggressively repleted. Chest x-ray is negative. His blood pressure was elevated this morning, will start Hydrazaline PRN if systolic is above 160. Will follow nephrology recommendations. 07/14/24 patient seen and examied with attending, REVIEW OF SYSTEMS CONSTITUTIONAL: Denies fevers, chills, or night sweats. No unintentional weight loss reported. NEUROLOGICAL: Denies headache, amaurosis fugax, motor weakness, sensory deficit, vertigo/spinning sensation, gait abnormalities, or tremors. ENT: No hearing loss, otalgia, otorrhea, rhinitis, rhinorrhea, hoarseness, or sore throat. CARDIOVASCULAR: Denies any exertional angina, dyspnea on exertion, orthopnea, paroxysmal nocturnal dyspnea, palpitations, life-threatening arrhythmias, claudication. PULMONARY: Denies any shortness of breath, cough, phlegm/sputum, hemoptysis, pleuritic chest pain. SLEEP: Denies morning headaches, daytime somnolence or napping. Denies difficulty falling asleep, staying asleep, waking from sleep. Denies knowledge of snoring. GASTROINTESTINAL: Denies any type of dysphagia to either liquids or solids. Denies nausea, vomiting, pyrosis, early satiety, abdominal pain, diarrhea, constipation, or changes in stool consistency or caliber. Denies coffee-ground emesis, hematemesis, hematochezia, or melanotic stools. GENITOURINARY: Denies frequency, urgency, nocturia, hematuria or incontinence (Storage/Irritative symptoms.) Low urinary stream, straining to void, urinary intermittency or hesitancy, splitting of the voiding stream, terminal dribbling. ENDOCRINOLOGIC: Denies polyuria, polydipsia, polyphagia or heat/cold intolerances. HEMATOLOGIC: Denies thrombophilia/previous clots, or coagulopathy/bleeding disorders. ONCOLOGIC: Denies personal history of malignancy. DERMATOLOGIC: Denies rashes or pruritus. PSYCHIATRIC: Denies any suicidal or homicidal ideation. Denies hallucinations. PHYSICAL EXAM GENERAL APPEARANCE: The patient is asleep, difficult to arouse, in no acute cardiopulmonary distress. NEUROLOGICAL: Cranial nerves II-XII grossly intact. Motor is 5/5 in bilateral upper and lower extremities proximal to distal. No sensory deficits. HEENT: Face is symmetric. NECK: Supple. No JVD. No thyromegaly. No submental, submandibular, pre-/postauricular, occipital or supraclavicular lymphadenopathy. CHEST: Normal chest expansion. No Telemetry. LUNGS: Absence of any rales, rhonchi or any wheezing. CARDIOVASCULAR: Regular. S1 and S2 normal. No appreciable rubs, murmurs or gallops. ABDOMEN: Soft, nontender, and nondistended. There is no rebound, voluntary guarding, or rigidity. : Deferred. No Roy. EXTREMITIES: Non-edematous and not cyanotic. No clubbing. Good capillary refill. SKIN: No skin breakdown. Vital Signs (last 8hr) Date Time Temp Pulse Resp B/P (MAP) Pulse Ox O2 Delivery O2 Flow Rate FiO2 07/14/24 04:00 98.2 76 20 115/69 97 Room Air LABS: Laboratory: Test 07/14/24 05:07 Range/Units White Blood Count 7.5 4.8-10.8 K/uL Red Blood Count 4.48 L 4.50-6.20 MIL/uL Hemoglobin 12.9 L 14.0-18.0 g/dL Hematocrit 38.0 L 42-54 % Mean Corpuscular Volume 84.8 79-99 fL Mean Corpuscular Hemoglobin 28.8 27.0-33.0 pg Mean Corpuscular Hemoglobin Concent 33.9 32.0-36.0 g/dL Red Cell Distribution Width 11.6 11.0-15.5 % Platelet Count 258 130-400 K/uL Mean Platelet Volume 9.8 7.5-10.5 fL Immature Granulocyte % (Auto) 0.7 0-1 % Neutrophils (%) (Auto) 69.4 40.0-77.0 % Lymphocytes (%) (Auto) 17.3 L 21.0-51.0 % Monocytes (%) (Auto) 11.2 3.0-13.0 % Eosinophils (%) (Auto) 0.9 0.0-8.0 % Basophils (%) (Auto) 0.5 0.0-5.0 % Neutrophils # (Auto) 5.2 1.8-7.7 K/uL Lymphocytes # (Auto) 1.3 1.0-4.8 K/uL Monocytes # (Auto) 0.8 0.1-1.0 K/uL Eosinophils # (Auto) 0.07 0.00-0.70 K/uL Basophils # (Auto) 0.04 0.00-0.20 K/uL Absolute Immature Granulocyte (auto 0.05 0-1 K/uL Nucleated Red Blood Cells 0.0 0.0-0.19 % Sodium Level 144 136-145 mmol/L Potassium Level 3.6 3.5-5.1 mmol/L Chloride Level 110 101-111 mmol/L Carbon Dioxide Level 25 21-32 mmol/L Blood Urea Nitrogen 17 7-18 mg/dL Creatinine 2.2 H 0.5-1.3 mg/dL Glomerular Filtration Rate Calc 42 >90 mL/min Random Glucose 110 #H 70-105 mg/dL Total Calcium 8.7 8.5-10.1 mg/dL Phosphorus Level 3.8 2.5-4.9 mg/dL Magnesium Level 1.90 1.80-2.40 mg/dL Total Bilirubin 0.6 # 0.2-1.0 mg/dL Aspartate Amino Transf (AST/SGOT) 74 H 10-37 U/L Alanine Aminotransferase (ALT/SGPT) 48 12-78 U/L Alkaline Phosphatase 55 50-136 U/L Total Creatine Kinase 6995 #*H 21-232 U/L Total Protein 5.8 L 6.0-8.3 g/dL Albumin 2.9 L 3.5-5.0 g/dL Current Medications Medications (Trade) Dose Ordered Sig/Barber Route PRN Reason Start Time Stop Time Status Last Admin Dose Admin Acetaminophen (TYLenol 325MG TAB) 650 mg Q4H PRN PO TEMPERATURE GREATER THAN 101.5 07/09/24 16:30 08/08/24 16:29 Ceftriaxone Sodium (Rocephin 2gm Inj) 2 gm Q24H IVPB 07/09/24 16:30 07/19/24 16:29 07/13/24 16:21 2 GM Chlordiazepoxide HCl (LIBrium 25 MG CAP) 25 mg Q2H PRN PO ALCOHOL WITHDRAWAL PROTOCOL 07/09/24 17:00 07/16/24 16:59 07/13/24 15:12 25 MG Hydralazine HCl (APRESOLine 20MG INJ) 10 mg Q6H PRN IV ADMINISTER FOR SBP > 160 07/13/24 10:00 08/12/24 09:59 07/13/24 10:02 10 MG Levetiracetam (kepPRA 500 MG TABLET) 500 mg BID PO 07/09/24 21:00 08/08/24 20:59 07/13/24 20:01 500 MG Levetiracetam (kepPRA 500 MG/5 ML SD VIAL) 1,000 mg ONCE IV 07/09/24 14:30 07/10/24 08:30 DC 07/09/24 14:52 1,000 MG Lorazepam (AtiVAN) 2 mg Q4H PRN IVP ALCOHOL WITHDRAWAL PROTOCOL 07/09/24 17:00 07/16/24 16:59 07/10/24 02:58 2 MG Magnesium Sulfate 50 ml @ 0 mls/hr PROTOCOL PRN IV low mag level 07/09/24 16:30 08/08/24 16:29 07/14/24 06:22 1.9 MLS/HR Multivitamins Therapeutic (Multivitamin Tablet) 1 tab DAILY PO 07/10/24 09:00 08/09/24 08:59 07/13/24 09:06 1 TAB Ondansetron HCl (zoFRAN 4MG INJ) 4 mg Q6H PRN IVP NAUSEA/VOMITING 07/09/24 16:30 08/08/24 16:29 07/13/24 09:10 4 MG Pharmacy Profile Note (Pharmacy Communication) 1 each PROTOCOL PRN MISC ETOH Withdrawal Score changes 07/09/24 17:00 07/16/24 16:59 Potassium Chloride 100 ml @ 100 mls/hr AD PRN IV POTASSIUM PROTOCOL 07/09/24 16:30 08/08/24 16:29 Potassium Chloride (K-Dur/Klor-Con 20meq) 20 meq AD PRN PO POTASSIUM PROTOCOL 07/09/24 16:30 08/08/24 16:29 07/14/24 06:22 20 MEQ Potassium Chloride (KCl 10% Elixir 20meq/15ml) 20 meq AD PRN PO POTASSIUM PROTOCOL 07/09/24 16:30 08/08/24 16:29 Sodium Chloride 1,000 ml @ 0 mls/hr Q0M IV 07/12/24 12:30 08/11/24 12:29 07/12/24 13:44 999 MLS/HR Sodium Chloride 1,000 ml @ 200 mls/hr Q5H IV 07/09/24 16:30 08/08/24 16:29 07/14/24 03:31 200 MLS/HR Thiamine HCl (Vitamin B-1) 100 mg DAILY IVP 07/10/24 09:00 08/09/24 08:59 07/13/24 09:06 100 MG Thiamine HCl 100 mg/Folic Acid 1 mg/Multivitamins/ Minerals 10 ml/ Sodium Chloride 1,011.2 ml @ 100 mls/ hr Q24H IV 07/09/24 17:00 07/11/24 06:27 DC 07/10/24 17:34 100 MLS/HR DIAGNOSTICS / RADIOLOGY: [ ] ASSESSMENT: Sirs with dysfunction POA syncope versus seizure episode with mechanical fall POA possible Seizure episode secondary to hydration,and induced marijuana POA PERRY prerenal dehydration POA acute rhabdomyolysis POA positive Marijuana abuse POA ETOH dependency POA moderate protein calorie malnutrition POA PLAN: will consult nephrology in regards to PERRY and rhabdomyolysis start on GI soft diet seizure precaution: cont on Keppra 500 mg po bid IVF's: NS at 200 ml/hr cont to monitor CK: trending down slowly Rocephin 2 gm IV daily, urine culture no growth 36-48 hrs afebrile no leukocytosis replace electrolyes as needed basis : to keep K+ above 4.0 and magnesium > 2.0 avoid NSAIDs, strict I.O CIWA PROTOCOL cont with thiamine HCL 100 mg IV MVI continue po daily counseling provided community resource provided. PRN: MEDICATIONS Tylenol 650 mg po every 4 hrs for fever Zofran 4 mg IV every 6 hrs for n/v Hydralazine 10 mg IV every 4 hrs systolic pressure > 160 Supportive measures: DVT ppx, GI ppx further orders as per response to treatment. ATTESTATION BY PHYSICIAN I have seen and examined the patient. I reviewed the documentation, medical decision making, and treatment plan as noted by the resident provider above. I agree with the findings and plan of care. Edison Kelley MD, ELIZABETH NP Jul 14, 2024 08:54
[2024-07-14] MEDS: PoTASSium chloRIDE 10MEQ SR 10 MEQ/TAB TAB.SR.24H PO ONE (11:32)
[2024-07-14 12:25] VITALS: BP 152/111; PULSE 92; RESP 18; TEMP 98.7
[2024-07-14] MEDS ORDERED: LEVE-43 PO (14:51)
[2024-07-14] MEDS ORDERED: CEFD300C3 PO (14:52)
--- NOTE | 2024-07-14 14:53 | DS ---
Discharge Summary Hospital Course Summary: This is a 23-year-old male that presents in ED with chief complaints of having a mechanical fall she assumed maybe she had a seizure and came to ED for further evaluation and treatment. Apparently patient is on ant seizure medication however noncompliance has not be taking her medication over a year. His last siezure was a year ago. Patient's smokes marijuana last marijuana use was two days ago patient had alcohol consumption last night had seven beers. He reports he drinks on a daily basis. Patient received loading dose of Keppra and IV fluids. during the course of stay: patient CK increased overnight: was on IV fluids, Patient had no siezures on this admisison: instructed the patient he will need to follow up with his primary neurlolgist DR Stock from [facility]. Patient reports he out of Keppra therefor prescribed 30 days of Keppra 500 mg po bid. The patient was strongly advice to cessation from smoking marijuana can induced and trigger sezures and ETOH. Community resource was provided to patient. The patient was told to follow up with PCP: 2-3 days to recheck his CK level. The patient is clinically stable denies body aches, n/v, dizziness, Procedure(s): REASON: PERRY ORDERING PHYSICIAN: NESHA BAEZ MD PROCEDURE: RENAL - US RENAL SONOGRAM US RENAL SONOGRAM REASON: PERRY COMPARISON: None TECHNIQUE: Renal and bladder sonogram was performed. FINDINGS: Right kidney is 11.3 x 5.6 x 5.8 cm, left is 11.9 x 4.9 x 5.3 cm. There is no mass, stone or hydronephrosis. Urinary bladder appears unremarkable. IMPRESSION: 1. Normal renal and bladder sonogram. REASON: Seizures ORDERING PHYSICIAN: GILMA SUNG PROCEDURE: BRAIN WWO - MR BRAIN WWO CON MR BRAIN WWO CON REASON: Seizures COMPARISON: There are no prior MRI scans available for comparison. TECHNIQUE: Routine cerebral imaging protocol was performed. Images are also obtained pre and post gadolinium contrast infusion. There is mild motion artifact on multiple image sequences. CONTRAST: 19 cc Clariscan IV. FINDINGS: There is normal appearing brain parenchyma. There are no focal mass lesions. There are no areas of abnormal contrast enhancement or abnormal signal intensity. Ventricles and sulci appear normal. Posterior fossa and brainstem structures appear unremarkable. There is no evidence of intracranial hemorrhage. Diffusion-weighted images are negative for an acute ischemic process. There are no abnormal fluid collections. Extracranial soft tissues appear normal as well. IMPRESSION: 1. Normal pre and postcontrast MRI of the brain. REASON: seizure/ fall ORDERING PHYSICIAN: AV EAST MD PROCEDURE: HEAD WO - CT HEAD/BRAIN W/O CONTRAST CT HEAD/BRAIN W/O CONTRAST CLINICAL HISTORY: seizure/ fall COMPARISON: None TECHNIQUE: Multiple sequential axial images of the head were obtained from the base of the skull through vertex. CT was performed with one or more of the following dose reduction techniques: automated exposure control, adjustment of the mA and/or kV according to patient size, or use of iterative reconstruction technique FINDINGS: The brain parenchyma and CSF spaces are unremarkable. The orbital contents, paranasal sinuses and mastoid air cells are within normal limits. The calvarium is intact. 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 PROCEDURES: None IMAGING (S) report attached to summary : renal US Brain MRI Head CT Cervical spine CT MICROBIOLOGY: none ACTIVITY: ab christopher HOME MEDICATIONS reviewed remain the same CHANGES ON HOME MEDICATIONS: None NEW MEDICATIONS Keppra 500 mg po bid, Cefdinir 300 mg po bid for 7 days TEACHING: : cessation on marijuana use can induced seizure provided community resources Emergency instructions: The patient was instructed to present to the nearest Emergency Department or call 911 should their symptoms return or worsen. Home Medications: Active Scripts Cefdinir (Cefdinir) 300 Mg Capsule, 1 CAP PO BID for 7 Days, #14 CAP 0 Refills Prov:ABHI CALIXTO NP 07/14/24 Levetiracetam (Keppra) 500 Mg Tablet, 1 TAB PO BID for 30 Days, #60 TAB 0 Refills Prov:ABHI CALIXTO NP 07/14/24 Levetiracetam (Keppra) 500 Mg Tablet, 500 MG PO BID for 30 Days, #60 TAB 2 Refills Prov:RUBY LINDQUIST Sr., MD 01/28/23 New Medications: Cefdinir (Cefdinir) 300 Mg Capsule 1 CAP PO BID for 7 Days, #14 CAP 0 Refills Levetiracetam (Keppra) 500 Mg Tablet 1 TAB PO BID for 30 Days, #60 TAB 0 Refills Continued Medications: Levetiracetam (Keppra) 500 Mg Tablet 500 MG PO BID for 30 Days, #60 TAB 2 Refills Time spent arranging discharge: 31-60 minutes ATTESTATION BY PHYSICIAN I have seen and examined the patient. I reviewed the documentation, medical decision making, and treatment plan as noted by the resident provider above. I agree with the findings and plan of care. Edison Kelley MD, ELIZABETH NP Jul 14, 2024 14:53
[2024-07-14] MEDS ORDERED: 0.9% NACL 500ML IV.SOLN 500 ML IV ONE (15:00)
--- NOTE | 2024-07-14 17:25 | NUR ---
D/C INSTRUCTIONS GIVEN VERBALLY AND WRITTEN, D/C'D PIV TO LT. WRIST WITHOUT REDNESS, SWELLING OR TENDERNESS TO SITE, ESCORTED OUT VIA W/C, NO DISCOMFORT NOTED.
--- NOTE | 2024-07-14 19:32 | PN ---
FOLLOWUP PROGRESS NOTE SUBJECTIVE: A 23-year-old male with a history of known seizures. The patient presented status post fall at home. The patient was found to have acute renal failure as well as rhabdomyolysis. The patient's renal function continues to slowly improve. The patient's CPK also has improved. Urine output has been excellent overnight. The patient is being seen as a followup visit for all of the above. REVIEW OF SYSTEMS: GENERAL: The patient is feeling improved. HEENT: No change in vision. No change in hearing. No nasal discharge. No sore throat. CARDIOVASCULAR: There is no current chest pain or palpitations. PULMONARY: No shortness of breath. GASTROINTESTINAL: He is tolerating some on diet. MUSCULOSKELETAL: Complains of weakness. PHYSICAL EXAMINATION: VITAL SIGNS: Blood pressure 115/69, pulse 70s. GENERAL: He is a young male, lying in bed on the medical floor. HEENT: Head is atraumatic. Pupils equal, roving to light. Oropharynx is without exudate. Nares are clear. NECK: There is no JVP. There is no thyromegaly, no mass. CARDIOVASCULAR: Regular. There is no S3, S4, gallop. LUNGS: Coarse with equal thoracic movement. ABDOMEN: Soft, nondistended, nontender. EXTREMITIES: Reveal no clubbing, no cyanosis. NEUROLOGIC: He is awake. He is alert. He is oriented. SKIN: Reveals no rash or nodules. BACK: There is no CVA tenderness or back deformities. LABORATORY DATA: Hemoglobin 12, hematocrit 38. Sodium 144, potassium 3.6, BUN is 17, creatinine is 2.2. CPK 7000. IMPRESSION: * Acute renal failure. * Rhabdomyolysis. * Electrolyte abnormalities. * History of seizures. PLAN: The patient is much improved from a renal standpoint. The patient's IV fluids can safely be discontinued in anticipation for discharge to home. The patient's potassium will be repleted. We will continue to follow closely. Once the patient is discharged, the patient can follow up in the Renal Clinic. TID: [id number] RECEIPT: [id number]
== END 2024-07-14 17:25 | disposition home or self-care (01) | DRG 100 ==
LOC: EDH 12:48 → EDHIP 16:11 → 3CH 20:25
PROVIDERS: ADMIT Internal Medicine; ATTEND Internal Medicine
PROC: 4A00X4Z Measurement of Central Nervous Electrical Activity, External Approach (ICD-10-PCS; principal; 2024-07-11)
DX: G40.89 Other seizures (principal); R65.11 Systemic inflammatory response syndrome (SIRS) of non-infectious origin with acute organ dysfunction; N17.9 Acute kidney failure, unspecified; F10.939 Alcohol use, unspecified with withdrawal, unspecified; M62.82 Rhabdomyolysis; E44.0 Moderate protein-calorie malnutrition; E86.0 Dehydration; F12.10 Cannabis abuse, uncomplicated; K59.00 Constipation, unspecified; T40.715A Adverse effect of cannabis, initial encounter; I10 Essential (primary) hypertension; G51.0 Bell's palsy; Z91.148 Patient's other noncompliance with medication regimen for other reason; Z91.199 Patient's noncompliance with other medical treatment and regimen due to unspecified reason; Z79.899 Other long term (current) drug therapy; Y92.89 Other specified places as the place of occurrence of the external cause
CPT/HCPCS: 36415; 70450; 70553; 71045; 72040; 76770; 80048; 80051; 80053; 80164; 80185; 80305; 81001; 82550; 83605; 83735; 83874; 84100; 84146; 84484; 85025; 85027; 87040; 87086; 93005; 95819; 96365; 99291; G0378; J0360; J0696; J1953; J2060; J2405; J2550; J3411; J3475; J3490; J7030; J7120; A9575

== ENCOUNTER 2024-08-15 10:28 | Emergency (ER) | payer BC ==
[~2024-08-15] VITALS: Ht 165.1 cm; Wt 79.4 kg
[~2024-08-15 10:28] MED LIST changes: +CEFD300C3 PO
--- NOTE | 2024-08-15 10:53 | EKG ---
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
--- NOTE | 2024-08-15 11:20 | NUR ---
ASSUMED CARE AT THIS TIME. PT TRANSPORTED BY EMS INTO [facility] AND TRANSFERRED ONTO RECLINER FROM EMS STRETCHER
[2024-08-15] MEDS: leveTIRACEtam 500 MG/5 ML SD V 1,000 MG in 0.9%NACL 100ML 100 ML IV SCH (11:27)
[2024-08-15] MEDS: 0.9%NACL 1000ML 1,000 ML IV ONE (11:27)
[2024-08-15] MEDS: FAMOTIDINE 20MG VIAL IV ONE (11:27)
[2024-08-15] MEDS: ondanSETRON 4MG INJ IVP ONE (11:27)
[2024-08-15 11:44] LABS: BASOPHILS # (AUTO) 0.08 K/uL (0.00-0.20); BASOPHILS % (AUTO) 0.4 % (0.0-5.0); EOSINOPHILS # (AUTO) 0.04 K/uL (0.00-0.70); EOSINOPHILS % (AUTO) 0.2 % (0.0-8.0); HEMATOCRIT 49.2 % (42-54); IMMATURE GRANULOCYTE ABSOLUTE 0.12 K/uL (0-1); LYMPHOCYTES # (AUTO) 1.8 K/uL (1.0-4.8); LYMPHOCYTES % (AUTO) 9.9 % (21.0-51.0); MEAN CORPUSCULAR HEMOGLOBIN 28.9 pg (27.0-33.0); MEAN CORPUSCULAR HGB CONC 34.6 g/dL (32.0-36.0); MEAN CORPUSCULAR VOLUME 83.5 fL (79-99); MONOCYTES # (AUTO) 0.8 K/uL (0.1-1.0); MONOCYTES % (AUTO) 4.2 % (3.0-13.0); NEUTROPHILS # (AUTO) 15.2 K/uL (1.8-7.7); NEUTROPHILS % (AUTO) 84.6 % (40.0-77.0); PLATELET COUNT (AUTO) 308 K/uL (130-400); RED BLOOD CELL COUNT(AUTO) 5.89 MIL/uL (4.50-6.20); RED CELL DISTRIBUTION WIDTH 11.2 % (11.0-15.5)
[2024-08-15 11:55] LABS: POTASSIUM 4.5 mmol/L (3.5-5.1)
[2024-08-15 11:56] LABS: MAGNESIUM 2.2 mg/dL (1.80-2.40)
--- NOTE | 2024-08-15 11:56 | NUR ---
PT TRANSPORTED TO CT VIA WHEELCHAIR BY MADAN HAY BUCKLER.
--- NOTE | 2024-08-15 12:11 | ERN ---
General Chief Complaint: Seizure Stated Complaint: SEIZURE W/FALL Time Seen by MD: 10:31 Time Seen by Midlevel: 10:31 Source: patient History of Present Illness Initial Comments Patient is a 23-year-old male with a past medical history of seizure disorder on Keppra presenting to the emergency department for an alleged seizure and fall that occurred prior to arrival. Patient awoke and called 911 himself. There are no obvious external injuries. Patient does report being noncompliant with his seizure medication. He was supposed to be taking 500 mg of Keppra twice a day but states he ran out of his Keppra three days ago. He is followed by neurologist Dr. Stock but has not seen him since 2019. On arrival he reports a mild headache but denies any other symptoms at this time. Allergies: Coded Allergies: No Known Drug Allergies (Unverified Allergy, Unknown, UNKNOWN, 06/14/20) Home Meds Active Scripts Cefdinir (Cefdinir) 300 Mg Capsule, 1 CAP PO BID for 7 Days, #14 CAP 0 Refills Prov:ABHI CALIXTO NP 07/14/24 Levetiracetam (Keppra) 500 Mg Tablet, 1 TAB PO BID for 30 Days, #60 TAB 0 Refills Prov:ABHI CALIXTO NP 07/14/24 Levetiracetam (Keppra) 500 Mg Tablet, 500 MG PO BID for 30 Days, #60 TAB 2 Refills Prov:RUBY LINDQUIST Sr., MD 01/28/23 Past Medical History Past Medical History: Seizure, Other Medical History Other: MARIJUANA USE Past Surgical History: None Social History Social History: Drugs, ETOH, Lives with family ROS Dictation CONSTITUTIONAL: Negative except for HPI HEAD/FACE: Negative except for HPI EENT: Negative except for HPI RESPIRATORY: Negative except for HPI GASTROINTESTINAL/ABDOMINAL: Negative except for HPI GENITOURINARY: Negative except for HPI MUSCULOSKELETAL: Negative except for HPI INTEGUMENTARY: Negative except for HPI NEUROLOGICAL/PSYCH: Negative except for HPI HEMATOLOGIC/LYMPHATIC: Negative except for HPI All Systems Negative, Except as noted above. 13 point review of systems assessed and all negative except for above. Physical Exam Physical Exam Dictation Vital Signs reviewed General Appearance: Alert, oriented x 3, no acute distress, well developed, nourished. Head and Face: non-traumatic. Eyes: PERRL, pink conjunctivas, eyelid no trauma, anterior chamber with arcus senilis. Ears: Pinnas intact and no signs of trauma or erythema ear canals clear and no discharge TM no erythema Nose: No discharge, no bleeding. Oropharynx: Mouth normal, tongue pink, pharynx clear,no erythema, tonsils no exudates, no abscesses noted, mucous membrane moist Neck: Supple, non-tender, no thyromegaly, no masses, no JVD, no bruits Breast:Deferred Chest:No tenderness, no crepitus, no paradoxical movement, no retractions Lungs:Clear, well-ventilated, symmetric, no rales, no wheezing, no rhonchi, no stridor, good breath sounds bilaterally Heart: Regular rate, regular rhythm, no murmur, no gallops Vascular: no peripheral edema, Abdomen: Soft, positive bowel sounds, nondistended, no guarding, nontender, no rebound, no masses no hepatomegaly, no splenomegaly, no Song's sign, no hernias. Rectal: Deferred Genital: Deferred Neurological: Normal speech, motor function intact, sensory function intact Musculoskeletal: Neck nontender, full range of motion, back nontender, full range of motion, Extremities: nontender, full range of motion Skin: Color pink, dry, no turgor, no rash, no lacerations, no abrasions, no contusions. Lymphatic: Deferred Results Laboratory and Microbiology Lab and Micro Result Laboratory Tests Test 08/15/24 11:38 08/15/24 12:12 White Blood Count 18.0 K/uL (4.8-10.8) H Red Blood Count 5.89 MIL/uL (4.50-6.20) Hemoglobin 17.0 g/dL (14.0-18.0) Hematocrit 49.2 % (42-54) Mean Corpuscular Volume 83.5 fL (79-99) Mean Corpuscular Hemoglobin 28.9 pg (27.0-33.0) Mean Corpuscular Hemoglobin Concent 34.6 g/dL (32.0-36.0) Red Cell Distribution Width 11.2 % (11.0-15.5) Platelet Count 308 K/uL (130-400) Mean Platelet Volume 9.8 fL (7.5-10.5) Immature Granulocyte % (Auto) 0.7 % (0-1) Neutrophils (%) (Auto) 84.6 % (40.0-77.0) H Lymphocytes (%) (Auto) 9.9 % (21.0-51.0) L Monocytes (%) (Auto) 4.2 % (3.0-13.0) Eosinophils (%) (Auto) 0.2 % (0.0-8.0) Basophils (%) (Auto) 0.4 % (0.0-5.0) Neutrophils # (Auto) 15.2 K/uL (1.8-7.7) H Lymphocytes # (Auto) 1.8 K/uL (1.0-4.8) Monocytes # (Auto) 0.8 K/uL (0.1-1.0) Eosinophils # (Auto) 0.04 K/uL (0.00-0.70) Basophils # (Auto) 0.08 K/uL (0.00-0.20) Absolute Immature Granulocyte (auto 0.12 K/uL (0-1) Nucleated Red Blood Cells 0.0 % (0.0-0.19) White Cell Morphology Comment See comments Sodium Level 137 mmol/L (136-145) Potassium Level 4.5 mmol/L (3.5-5.1) Chloride Level 104 mmol/L (101-111) Carbon Dioxide Level 23 mmol/L (21-32) Blood Urea Nitrogen 18 mg/dL (7-18) Creatinine 1.0 mg/dL (0.5-1.3) Glomerular Filtration Rate Calc 108 mL/min (>90) Random Glucose 123 mg/dL (70-105) H Total Calcium 9.6 mg/dL (8.5-10.1) Magnesium Level 2.20 mg/dL (1.80-2.40) Troponin I High Sensitivity 6 ng/L (4-75) Urine Color COLORLESS (YELLOW) Urine Appearance CLEAR (CLEAR) Urine pH 6.0 (5.0-8.0) Urine Specific [place] 1.016 (1.001-1.031) Urine Protein 30 mg/dL (NEGATIVE) H Urine Glucose (UA) NEGATIVE mg/dL (NEGATIVE) Urine Ketones NEGATIVE mg/dL (NEGATIVE) Urine Occult Blood NEGATIVE (NEGATIVE) Urine Nitrate NEGATIVE (NEGATIVE) Urine Bilirubin NEGATIVE mg/dL (NEGATIVE) Urine Urobilinogen 0.2 mg/dL (0.2-1.0) Urine Leukocyte Esterase NEGATIVE Wojciech/uL Urine RBC 0-1 /HPF (0-1) Urine WBC 2-5 /HPF (0-1) H Urine Bacteria None /HPF (None Seen) Urine Opiates Screen NEGATIVE (NEGATIVE) Urine Barbiturates Screen NEGATIVE (NEGATIVE) Urine Phencyclidine Screen NEGATIVE (NEGATIVE) Urine Amphetamines Screen NEGATIVE (NEGATIVE) Urine Benzodiazepines Screen NEGATIVE (NEGATIVE) Urine Cocaine Screen NEGATIVE (NEGATIVE) Urine Marijuana (THC) Screen POSITIVE (NEGATIVE) H Labs Reviewed?: Yes MDM MDM: Patient is a 23-year-old male with a past medical history of seizure disorder on Keppra presenting to the emergency department for an alleged seizure and fall that occurred prior to arrival. Patient awoke and called 911 himself. There are no obvious external injuries. Patient does report being noncompliant with his seizure medication. He was supposed to be taking 500 mg of Keppra twice a day but states he ran out of his Keppra three days ago. He is followed by neurologist Dr. Stock but has not seen him since 2019. On arrival he reports a mild headache but denies any other symptoms at this time. On physical examination patient is in no acute respiratory distress. He was alert and oriented x4 with a GCS of 15. His initial vital signs are stable. His neurological examination is unremarkable. Patient was able to ambulate with a normal gait without assistance[place] [address] consistent with a stress reaction. Patient most likely did have a seizure. On arrival he specifically denies any pain to his body. He only reports a slight headache. His chemistries are unremarkable. His cardiac enzymes are negative. His urinalysis does not show any evidence of infection. His urine drug screen is remarkable for marijuana. His CT scan of the head does not show any acute intracranial bleed or any other acute abnormalities. Patient states he ran out of his medication. A short course of Keppra was prescribed and patient was advised to follow up with both his primary care doctor and neurologist for further evaluation outpatient. Differential diagnosis: Seizure disorder, medication noncompliance, dehydration There are no social concerns with this patient. Prescription drug management Prescriptions will include: Keppra Medical management and examination interpretation discussions were had by me with other qualified healthcare professionals as indicated for the patient's care. ED Course Orders Procedure Category Date Status Time Cbc With Differential LAB 08/15/24 Complete 10:31 Basic Metabolic Panel LAB 08/15/24 Complete 10:31 Magnesium LAB 08/15/24 Complete 10:31 Drug Screen Urine LAB 08/15/24 Complete 10:31 Urinalysis Profile LAB 08/15/24 Complete 10:31 Ondansetron 4mg Inj PHA 08/15/24 Complete (Zofran 4mg Inj) 11:00 Famotidine 20mg Vial PHA 08/15/24 Complete (Pepcid 20mg Vial) 11:00 0.9%Nacl 1000ml (Ns PHA 08/15/24 Complete 1000ml) 11:00 Levetiracetam 500 PHA 08/15/24 In Process Mg/5 Ml Sd V (Keppra 5 14:00 12 Lead Ekg Tracing- EKG 08/15/24 Complete Technical 10:31 Troponin I High LAB 08/15/24 Complete Sensitivity 10:31 Ct Head/Brain W/O CT 08/15/24 Resulted Contrast 10:33 Current Medications Medications (Trade) Dose Ordered Sig/Barber Route PRN Reason Start Time Stop Time Status Last Admin Dose Admin Famotidine (Pepcid 20mg Vial) 20 mg ONCE ONCE IV 08/15/24 11:00 08/15/24 11:01 DC 08/15/24 11:27 Levetiracetam 1000 mg/Sodium Chloride 100 ml @ 400 mls/hr Q8H6 IV 08/15/24 14:00 09/14/24 13:59 08/15/24 11:27 Ondansetron HCl (zoFRAN 4MG INJ) 4 mg ONCE ONCE IVP 08/15/24 11:00 08/15/24 11:01 DC 08/15/24 11:27 Sodium Chloride 1,000 ml @ 0 mls/hr ONCE ONCE IV 08/15/24 11:00 08/15/24 11:01 DC 08/15/24 11:27 Vital Signs Date Time Temp Pulse Resp B/P (MAP) Pulse Ox O2 Delivery O2 Flow Rate FiO2 08/15/24 10:30 97.9 105 17 127/65 97 Room Air 0 DX & DISP Disposition: Discharge Departure Impression: Primary Impression: History of epilepsy Additional Impression: Noncompliance with medications Condition: Stable Scripts Levetiracetam (Keppra) 500 Mg Tablet 1 TAB PO BID for 10 Days, #20 TAB 0 Refills Prov: TAMIE SALAZAR 08/15/24 Additional Instructions: Your blood work today is stable. Please follow up with your primary care doctor for further evaluation. I have given you a prescription for a short course of Keppra as you had mentioned that you had ran out of this medication.. Please follow up with neurologist for further evaluation. Return to the ER if you develop any new or worsening symptoms Referrals: SELF,REFERRAL (PCP) I have reviewed the case, and I agree with, Diagnosis and Plan I performed the substantive portion of the visit. I have reviewed and personally made and approve the management plan that is documented in the note by myself or the KAMILAH. I acknowledge for responsibility for the patient's management plan. TAMIE SALAZAR Aug 15, 2024 12:11
[2024-08-15 12:27] LABS: APPEARANCE,URINE CLEAR (CLEAR); BILIRUBIN,URINE NEGATIVE (NEGATIVE); COLOR,URINE COLORLESS (YELLOW); GLUCOSE, URINE (UA) NEGATIVE (NEGATIVE); KETONES,URINE NEGATIVE (NEGATIVE); LEUKOCYTE ESTERASE ,URINE NEGATIVE Leu/uL (NEGATIVE); NITRATE,URINE NEGATIVE (NEGATIVE); OCCULT BLOOD,URINE NEGATIVE (NEGATIVE); PROTEIN,URINE 30 mg/dL (NEGATIVE); UROBILINOGEN,URINE 0.2 mg/dL (0.2-1.0)
--- NOTE | 2024-08-15 12:28 | HMCIMG ---
Exam: NONCONTRAST CT BRAIN REASON: seizure. COMPARISON: MRI brain 07/10/2024 TECHNIQUE: Images are obtained from vertex to the skull base. The exam was performed without IV contrast. FINDINGS: There is normal appearing brain parenchyma. There are no focal mass lesions. There is is no evidence of intracranial hemorrhage or acute stroke. Ventricles and sulci appear normal. Posterior fossa and brainstem structures are unremarkable. Paranasal sinuses and remaining extracranial soft tissues appear normal as well. IMPRESSION: 1. Normal noncontrast CT brain. CT was performed with one or more following dose reduction techniques: automated exposure control, adjustment of the mA and kv according to patient's size, or use of a iterative reconstruction technique.
[2024-08-15 12:31] LABS: ADD UA MICROSCOPIC YES
[2024-08-15 12:32] LABS: RBC,URINE 0-1 /HPF (0-1)
[2024-08-15 12:35] LABS: AMPHET/METH SCREEN,URINE NEGATIVE (NEGATIVE); BARBITURATE SCREEN, URINE NEGATIVE (NEGATIVE); BENZODIAZEPINES SCREEN,URINE NEGATIVE (NEGATIVE); CANNABINOID SCREEN,URINE POSITIVE (NEGATIVE); COCAINE SCREEN,URINE NEGATIVE (NEGATIVE); OPIATE SCREEN,URINE NEGATIVE (NEGATIVE); PHENCYCLIDINE SCREEN,URINE NEGATIVE (NEGATIVE)
[2024-08-15] MEDS ORDERED: LEVE-43 PO (13:03)
[2024-08-15 13:39] VITALS: BP 117/69; PULSE 80; RESP 19; TEMP 97.6; O2SAT 98
--- NOTE | 2024-08-15 13:40 | NUR ---
PT AMBULATING WITH OUT ASSISTANCE,NAD.
== END 2024-08-15 13:41 | disposition home or self-care (01) ==
LOC: EDH 10:28
DX: G40.909 Epilepsy, unspecified, not intractable, without status epilepticus (principal); Z79.899 Other long term (current) drug therapy; Z91.148 Patient's other noncompliance with medication regimen for other reason
CPT/HCPCS: 99284; 96365; 70450; 96375; 83735; 84484; 80048; 80305; 85025; 36415; 93005; 81001; J3490; J1953; J7030; J2405